=== PATIENT | male | born 1960 | race Caucasian/White ===

== ENCOUNTER 2022-02-27 10:34 | Emergency (ER) | payer OTHER, SELFPAY ==
--- NOTE | ~2022-02-27 | XR_ITS ---
EXAMINATION: XR chest 2V DATE: 02/27/2022 11:07 INDICATION: Cough, and shortness of breath TECHNIQUE: Frontal view of the chest is obtained COMPARISON: None available FINDINGS: The lungs are free of acute opacities. No pleural effusion or pneumothorax. The cardiomedia stinal silhouette is normal. There is moderate thoracic spondylosis. IMPRESSION: 1. No acute cardiopulmonary abnormality. Reviewed, dictated and finalized at location B.
[2022-02-27 10:44] VITALS: BP 140/71; PULSE 84; RESP 16; TEMP 36.9; O2SAT 99
--- NOTE | 2022-02-27 10:50 | ED.URI ---
HPI - URI/Sore Throat General Chief Complaint: Upper Respiratory Infection Stated Complaint: congestion Time Seen by Provider: 02/27/22 10:58 Source: patient, RN notes reviewed and old records reviewed Mode of arrival: ambulatory Limitations: no limitations History of Present Illness HPI Narrative: 61-year-old male who presents to [facility] care with complaints of congestion, cough with some shortness of breath especially when laying down at night trying to sleep and states today some with exertion. Patient reports that he tested positive for COVID on February 18, patient has not been COVID vaccinated nor had flu shot. He reports that he has still some nasal congestion and cough denies any further fever, body aches or sore throat, did return to work yesterday. Patient has been taking Mucinex and Robitussin for his symptoms. MD elicited complaint: cough, rhinorrhea and nasal congestion Pertinent past history: other (COVID tested positive on 02/18) Onset (ago): day(s) Description of mucous: green Exacerbating factors: exertion and supine positioning Treatments prior to arrival: other (Mucinex and Robittussin) Related Data Allergies Allergy/AdvReac Type Severity Reaction Status Date / Time perindopril AdvReac Mild Cough Verified 01/16/22 15:17 Review of Systems Review of Systems: CONSTITUTIONAL: Denies fever, chills, or sweats. EYES: Denies visual changes, redness, or discharge. ENT: Positive for rhinorrhea, congestion,no sore throat, or otalgia. CARDIOVASCULAR: Denies chest pain, palpitations, or edema. RESPIRATORY: Positive intermittent productive cough with some dyspnea. GASTROINTESTINAL: Denies abdominal pain, nausea, vomiting, or diarrhea. GENITOURINARY: Denies dysuria or hematuria. SKIN: Denies rash or itching. MUSCULOSKELETAL: Denies back pain, joint pain, or myalgia. NEUROLOGIC: Denies headache, numbness, or weakness. PSYCHIATRIC: Denies anxiety or depression. All systems reviewed & are unremarkable except as noted in HPI and below PMFSH Past Medical History Medical History (Updated 02/27/22 @ 11:41 by Charlene Lai NP) Left foot pain Mixed hyperlipidemia Obesity Personal history of colonic polyps Primary generalized (osteo)arthritis Slow transit constipation Type 2 diabetes mellitus without complication, without long-term current use of insulin Surgical History Surgical History (Updated 02/27/22 @ 11:08 by Charlene Lai NP) History of bowel resection reports h/o multiple abd surgeries S/P right rotator cuff repair Status post hernia repair w/ resulting bowel perforation and sepsis Family History Family History Mother Heart disease Diabetes mellitus Other Family history of arthritis Social History Social History Smoking packs per day: 1 Smoking cigarettes per day: 20.0 Years smoked: 5 Smoking pack-years: 5.00 Smoking status: Former smoker Tobacco type: cigarettes Second hand tobacco smoke exposure: No Smoking end date: 07/08/89 Alcohol intake: current Alcohol use details: rare Substance use: never Substance use type: does not use Gender identity (if verbalized by the patient): Male Sexual Orientation (if Verbalized by the Patient): Straight or Heterosexual Comments At time of signature, agree with nursing past medical, surgical, social and family history. There is no relevant family history pertinent to the presenting complaint Exam Narrative: GENERAL: Well-appearing, well-nourished,obese and in no acute distress. HEAD: Normocephalic, atraumatic. EYES: PERRLA and EOMI. ENT: Nares red with some clear nasal rhinorrhea no epistaxis. Mucous membranes moist.TM's pearly white with good light reflex, throat with no lesions or exudates or tonsil swelling some post nasal drainage noted NECK: Supple. no lymphadenopathy CHEST: coarse breath sounds right base
== END 2022-02-27 11:51 | disposition home or self-care (01) ==
PROVIDERS: Emergency Provider Registered Nurse; PCP Family Medicine
DX: J06.9 Acute upper respiratory infection, unspecified (principal); R05.9 Cough, unspecified; Z87.891 Personal history of nicotine dependence; E78.2 Mixed hyperlipidemia; E11.9 Type 2 diabetes mellitus without complications; Z79.4 Long term (current) use of insulin; E66.9 Obesity, unspecified; Z68.42 Body mass index [BMI] 45.0-49.9, adult; M19.90 Unspecified osteoarthritis, unspecified site
CPT/HCPCS: 71046; 99213; G0463

== ENCOUNTER → 2023-08-29 08:26 | Outpatient (CLI) | payer OTHER, SELFPAY ==
--- NOTE | ~2023-08-29 | XR_ITS ---
Right Knee Technique: AP, lateral, and sunrise views were obtained. Clinical History: Pain Findings: No fracture or dislocation is seen. There is medial compartment narrowing. There is medial joint line osteophyte formation. There is mild degenerative change of the lateral and patellofemoral compartments.. Soft tissues are unremarkable. No joint effusion is seen. Impression: Moderate medial compartment degenerative change, and more mild degenerative change of the lateral and patellofemoral compartment. Reviewed, dictated and finalized at location M. 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
--- NOTE | ~2023-08-29 | XR_ITS ---
Left Knee Technique: AP, lateral, and sunrise views were obtained. Clinical History: Pain Findings: No fracture or dislocation is seen. Osseous alignment is anatomic. Mild tricompartmental de generative changes present. Soft tissues are unremarkable. No joint effusion is seen. Impression: Mild tricompartment degenerative change. Reviewed, dictated and finalized at [facility]. SUTURE WINDER Impression: Mild tricompartment degenerative change.
== END ==
PROVIDERS: PCP Physician Assistant; Visit Provider Physician Assistant
DX: M25.561 Pain in right knee (principal); M25.562 Pain in left knee
CPT/HCPCS: 73564

== ENCOUNTER 2024-09-22 13:13 | Emergency (ER) | payer OTHER, SELFPAY ==
--- NOTE | ~2024-09-22 | CT_ITS ---
CLINICAL INDICATION: Lower abdominal pain COMPARISON: None. TECHNIQUE: Multiple contiguous axial images of the abdomen and pelvis were performed following the ad ministration of with 100 mL Omnipaque-350 intravenous contrast The dose-length product (DLP) was 1602.08 mGy-cm. Automated exposure control and iterative reconstruction technique were employed. FINDINGS/OBSERVATIONS: Visualized lower thorax: The bilateral lung bases are clear. The heart is of normal size, without pericardial effusion. Small hiatal hernia is present. Liver: The liver demonstrates homogeneous enhancement and is enlarged measuring 19 cm in longitudinal dimens ion. Gallbladder and biliary system: The gallbladder is surgically absent. Pancreas: Fatty atrophy of the pancreas without ductal dilatation. Spleen: The spleen enhances homogeneously and is enlarged measuring 13 cm in longitudinal dimension. Kidneys: 8 mm nonobstructing calculus within the interpolar region of the left kidney. Rounded focus of decreased attenuation within the lower pole of the right kidney measuring 34 x 35 x 38 mm demonstr ating soft tissue attenuation for which focused ultrasound versus contrast-enhanced MRI (with renal m ass protocol) is recommended for further evaluation. Mild left-sided hydronephrosis likely secondary to chronic UPJ obstruction. The remainder of the bilateral kidneys otherwise enhance symmetrically without right-sided hydronephr osis or additional renal calculi detected bilaterally. Adrenal glands: Unremarkable. Gastrointestinal tract: Multiple fascial defects along the anterior abdominal wall. Within the mid transverse colon, just distal to a stapled anastomosis, to the right of midline is a ( likely) Conroy's hernia (axial series, images 124 through 133 and sagittal series, images 49 through 63). Small bowel containing anterior abdominal wall hernia is also noted, to the right of midline, likely chronic and nonobstructing. Appendix: Likely surgically absent. Vasculature: Calcified atherosclerotic disease within the lower abdominal aorta and bilateral iliac vasculature. Lymph nodes: No pathologically enlarged or morphologically suspicious lymph nodes within the retroperitoneum or at the root of the mesentery. Pelvic structures: The bladder is decompressed, and otherwise unremarkable. The prostate gland is not enlarged. Body wall and musculoskeletal: Degenerative disease within the lower thoracic and lumbosacral spine, most prominent at the level of L5/S1 with osteophyte formation, disc space narrowing, endplate changes and vacuum phenomena. There are bridging endplate osteophytes at multiple levels in the spine, consistent with diffuse idio pathic skeletal hyperostosis (DISH). IMPRESSION: 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 Hepatosplenomegaly Findings within the right kidney for which a focused ultrasound versus contrast-enhanced MRI (with re nal mass protocol) is recommended for further characterization once patient is over this acute event. Reviewed, dictated and finalized at location A. IMPRESSION: Findings consistent with a Conroy's hernia of the transverse colon, as detaile d above. Hepatosplenomegaly Findings within the right kidney for which a focused ultrasound versus contrast -enhanced MRI (with renal mass protocol) is recommended for further characteriz ation once patient is over this acute event.
[2024-09-22 13:36] VITALS: BP 143/64; PULSE 73; RESP 16; TEMP 36.5; O2SAT 100
--- NOTE | 2024-09-22 14:24 | ED_ITS ---
HPI - Abdominal Pain General Chief Complaint: Abdominal Pain <Aung Worley PA-C - Last Filed: 09/22/24 14:33> Stated Complaint: Hernia/abdominal pain, nausea <Aung Worley PA-C - Last Filed: 09/22/24 14:33> Time Seen by Provider: 09/22/24 15:34 <Aung Worley PA-C - Last Filed: 09/22/24 14:33> Focused HPI: This is a 63-year-old male who presents to the ED for chief complaint of diffuse abdominal pain ongoing for the past 2-3 days. Patient reports multiple hernias and multiple hernia surgeries in the past. He feels this pain is likely related to a hernia. Reports 2 episodes of vomiting 2 days ago. Denies overlying skin changes, fevers, change in bowel movement. GENERAL: Well-appearing, well-nourished, and in no acute distress. HEAD: Normocephalic, atraumatic. CHEST: Clear to auscultation. No respiratory distress. HEART: Regular rate and rhythm. ABD: Abdomen is soft. There are several areas of bulging across the upper abdomen. Significant scarring noted from previous abdominal surgical history NEURO: Alert and oriented x3. Patient screened in triage and initial orders placed. Additional care and disposition to be based upon diagnostic testing and treatment. <Aung Worley PA-C - Last Filed: 09/22/24 14:33> Source: patient <Aung Worley PA-C - Last Filed: 09/22/24 14:33> Mode of arrival: ambulatory <Aung Worley PA-C - Last Filed: 09/22/24 14:33> Limitations: no limitations <Aung Worley PA-C - Last Filed: 09/22/24 14:33> History of Present Illness HPI narrative: I agree with the above HPI <Edouard Jaramillo MD - Last Filed: 09/22/24 21:57> Related Data Allergies/Adverse Reactions: Allergies Allergy/AdvReac Type Severity Reaction Status Date / Time No Known Allergies Allergy Verified 09/22/24 15:26 <Aung Worley PA-C - Last Filed: 09/22/24 14:33> Review of Systems 2 Review of Systems: All systems reviewed & are unremarkable except as noted in HPI and below <Edouard Jaramillo MD - Last Filed: 09/22/24 21:57> [facility] Past Medical History Medical History: Medical History Left foot pain Mixed hyperlipidemia Obesity Personal history of colonic polyps Primary generalized (osteo)arthritis SBO (small bowel obstruction) Slow transit constipation Type 2 diabetes mellitus without complication, without long-term current use of insulin <Aung Worley PA-C - Last Filed: 09/22/24 14:33> Surgical History Surgical History: Surgical History History of bowel resection reports h/o multiple abd surgeries S/P right rotator cuff repair Status post hernia repair w/ resulting bowel perforation and sepsis <Aung Worley PA-C - Last Filed: 09/22/24 14:33> Family History Family History: Family History Mother Heart disease Diabetes mellitus Other Family history of arthritis <Aung Worley PA-C - Last Filed: 09/22/24 14:33> Social History Social History: Social History Smoking packs per day: 1 Smoking cigarettes per day: 20.0 Years smoked: 5 Smoking pack-years: 5.00 Smoking status: Former smoker Tobacco type: cigarettes Second hand tobacco smoke exposure: No Smoking end date: 07/08/89 Alcohol intake: current Alcohol use details: rare Substance use: never Substance use type: does not use Living arrangements: with family Occupation/Education: occupation Gender identity (if verbalized by the patient): Male Sexual Orientation (if Verbalized by the Patient): Straight or Heterosexual <Aung Worley PA-C - Last Filed: 09/22/24 14:33> Exam 2 Narrative: APPEARANCE: Well appearing, no pain, no distress, well-nourished. HEAD: normocephalic, atraumatic. EYES: PERRLA/EOMI, conjunctivae clear. NOSE: Normal no drainage EARS:TMS clear with good light reflex. THROAT: Pharynx clear, no exudate. NECK: Supple. No adenopathy, no masses. RESPIRATORY: Airway patent, respirations nonlabored. Clear to auscultation bilaterally, no rales, rhonchi, wheezing. CARDIOVASCULAR: Regular rate and rhythm without murmurs rubs or gallops. ABDOMINAL: Multiple scars across the abdomen with large abdominal wall defects. No areas of incarcerated bowel palpate. No tenderness to palpation, active bowel sounds MUSCULOSKELETAL: Moves all extremities. Strength/ROM intact, No edema, No calf tenderness. NEURO: Alert. Cranial nerves II through XII intact. Good gait. Good coordination SKIN: Warm, dry. Normal Color <Edouard Jaramillo MD - Last Filed: 09/22/24 21:57> Course Vital Signs Vital signs: Vital Signs Temperature 97.7 F 09/22/24 13:36 Pulse Rate 73 09/22/24 13:36 Respiratory Rate 16 09/22/24 13:36 Blood Pressure 143/64 H 09/22/24 13:36 Pulse Oximetry 100 09/22/24 13:36 Temperature 97.7 F 09/22/24 13:36 Pulse Rate 74 09/22/24 16:46 Respiratory Rate 15 09/22/24 16:46 Blood Pressure 151/82 H 09/22/24 16:46 Pulse Oximetry 100 09/22/24 16:46 <Aung Worley PA-C - Last Filed: 09/22/24 14:33> Vital Signs Temperature 97.7 F 09/22/24 13:36 Pulse Rate 73 09/22/24 13:36 Respiratory Rate 16 09/22/24 13:36 Blood Pressure 143/64 H 09/22/24 13:36 Pulse Oximetry 100 09/22/24 13:36 Temperature 97.7 F 09/22/24 13:36 Pulse Rate 74 09/22/24 16:46 Respiratory Rate 15 09/22/24 16:46 Blood Pressure 151/82 H 09/22/24 16:46 Pulse Oximetry 100 09/22/24 16:46 <Edouard Jaramillo MD - Last Filed: 09/22/24 21:57> MDM - Abdominal Pain MDM Narrative Medical decision making narrative: 63-year-old male presents emergency department for evaluation for evaluation of intermittent abdominal pain. Patient did feel he was having increased abdominal pressure that has since improved. Patient is currently afebrile with no leukocytosis hemoglobin of 14.4. No acute abnormalities on the patient's CMP and a lactic acid of 1.4 UA was negative for infection. Patient does have multiple hernias on the CT scan with no evidence of obstruction. Patient states he is passing gas passing flatness. Patient was advised to switch to a clear liquid diet was provided medications for pain control. Patient states he does have follow-up with primary care physician and was encouraged to follow up with his surgeons at [place]. All questions concerns were addressed patient family are comfortable the plan for discharge and close follow-up. <Edouard Jaramillo MD - Last Filed: 09/22/24 21:57> Differential Diagnosis Differential diagnosis: Likely abdominal pain, acute appendicitis, constipation, diverticulitis, gastroenteritis, pancreatitis and small bowel obstruction <Edouard Jaramillo MD - Last Filed: 09/22/24 21:57> Lab Data Attestation: I reviewed the patient's lab results. <Edouard Jaramillo MD - Last Filed: 09/22/24 21:57> Result diagrams: 09/22/24 14:34 09/22/24 14:34 <Aung Worley PA-C - Last Filed: 09/22/24 14:33> Labs: Lab Results 09/22/24 09/22/24 Range/Units 14:34 14:49 WBC 7.3 (4.5-10.0) K/mm3 RBC 4.87 (4.6-6.20) M/mm3 Hgb 14.4 (14.0-18.0) g/dL Hct 44.2 (42.0-52.0) % MCV 90.8 (80-100) fl MCH 29.6 (26-34) pg MCHC 32.6 (32-36) g/dl RDW 14.3 (11.5-14.5) % Plt Count 158 (150-375) k/mm3 MPV 10.4 (7.4-10.4) fl Immature Gran % (Auto) 0.1 (0-0.5) % Neut % (Auto) 70.5 (45.5-73.1) % Lymph % (Auto) 19.1 (18.3-44.2) % [place] % (Auto) 7.4 (2.6-8.5) % Eos % (Auto) 2.6 (0-4.4) % Baso % (Auto) 0.3 (0.2-1.2) % Lymph # (Auto) 1.40 (0.9-3.2) K/mm3 [place] # (Auto) 0.5 (0.1-0.6) K/mm3 Eos # (Auto) 0.2 (0-0.3) K/mm3 Baso # (Auto) 0.0 (0.0-0.1) K/mm3 Abs Immat Gran (auto) 0.01 (0.00-0.031) K/mm3 Absolute Neuts (auto) 5.2 (1.3-6.7) K/mm3 Absolute Nucleated RBC 0.000 (0.0-0.012) K/mm3 Nucleated RBC % 0.0 (0.0-0.2) % Sodium 139 (137-145) mmol/L Potassium 4.3 (3.4-5.0) mmol/L Chloride 105 (98-107) mmol/L Carbon Dioxide 26 (22-30) mmol/L Anion Gap 8 (4-12) mmol/L BUN 17 (9-20) mg/dL Creatinine 0.86 (0.7-1.3) mg/dL Estim Creat Clear Calc Not Reportable Estimated GFR > 60 (59 - ) Glucose 197 H (65-110) mg/dL Lactic Acid 1.4 (0.7-2.0) mmol/L Calcium 8.8 (8.4-10.2) mg/dL Total Bilirubin 0.7 (0.2-1.3) mg/dL AST 18 (17-59) U/L ALT 18 (6-50) U/L Alkaline Phosphatase 69 (38-126) U/L Total Protein 6.0 L (6.3-8.2) g/dL Albumin 3.7 (3.5-5.1) g/dL Lipase 44 (23-300) U/L Urine Color Yellow (Yellow) Urine Appearance Clear (Clear) Urine pH 5.5 (5.0-9.0) Ur Specific [place] 1.024 (1.001-1.035) Urine Protein Negative (Negative) mg/dL Urine Glucose (UA) 3+ H (Negative) mg/dL Urine Ketones Negative (Negative) mg/dL Ur Blood (Man) Negative (Negative) Urine Nitrate Negative (Negative) Urine Bilirubin Negative (Negative) Urine Urobilinogen 1.0 (<2.0) mg/dL Leukocyte Esterase Rfl Negative (Negative) KATIE/UL <Aung Worley PA-C - Last Filed: 09/22/24 14:33> Lab Results 09/22/24 09/22/24 Range/Units 14:34 14:49 WBC 7.3 (4.5-10.0) K/mm3 RBC 4.87 (4.6-6.20) M/mm3 Hgb 14.4 (14.0-18.0) g/dL Hct 44.2 (42.0-52.0) % MCV 90.8 (80-100) fl MCH 29.6 (26-34) pg MCHC 32.6 (32-36) g/dl RDW 14.3 (11.5-14.5) % Plt Count 158 (150-375) k/mm3 MPV 10.4 (7.4-10.4) fl Immature Gran % (Auto) 0.1 (0-0.5) % Neut % (Auto) 70.5 (45.5-73.1) % Lymph % (Auto) 19.1 (18.3-44.2) % [place] % (Auto) 7.4 (2.6-8.5) % Eos % (Auto) 2.6 (0-4.4) % Baso % (Auto) 0.3 (0.2-1.2) % Lymph # (Auto) 1.40 (0.9-3.2) K/mm3 [place] # (Auto) 0.5 (0.1-0.6) K/mm3 Eos # (Auto) 0.2 (0-0.3) K/mm3 Baso # (Auto) 0.0 (0.0-0.1) K/mm3 Abs Immat Gran (auto) 0.01 (0.00-0.031) K/mm3 Absolute Neuts (auto) 5.2 (1.3-6.7) K/mm3 Absolute Nucleated RBC 0.000 (0.0-0.012) K/mm3 Nucleated RBC % 0.0 (0.0-0.2) % Sodium 139 (137-145) mmol/L Potassium 4.3 (3.4-5.0) mmol/L Chloride 105 (98-107) mmol/L Carbon Dioxide 26 (22-30) mmol/L Anion Gap 8 (4-12) mmol/L BUN 17 (9-20) mg/dL Creatinine 0.86 (0.7-1.3) mg/dL Estim Creat Clear Calc Not Reportable Estimated GFR > 60 (59 - ) Glucose 197 H (65-110) mg/dL Lactic Acid 1.4 (0.7-2.0) mmol/L Calcium 8.8 (8.4-10.2) mg/dL Total Bilirubin 0.7 (0.2-1.3) mg/dL AST 18 (17-59) U/L ALT 18 (6-50) U/L Alkaline Phosphatase 69 (38-126) U/L Total Protein 6.0 L (6.3-8.2) g/dL Albumin 3.7 (3.5-5.1) g/dL Lipase 44 (23-300) U/L Urine Color Yellow (Yellow) Urine Appearance Clear (Clear) Urine pH 5.5 (5.0-9.0) Ur Specific [place] 1.024 (1.001-1.035) Urine Protein Negative (Negative) mg/dL Urine Glucose (UA) 3+ H (Negative) mg/dL Urine Ketones Negative (Negative) mg/dL Ur Blood (Man) Negative (Negative) Urine Nitrate Negative (Negative) Urine Bilirubin Negative (Negative) Urine Urobilinogen 1.0 (<2.0) mg/dL Leukocyte Esterase Rfl Negative (Negative) KATIE/UL <Edouard Jaramillo MD - Last Filed: 09/22/24 21:57> Imaging Data Radiologist's impression: ITS Impressions Abdomen/Pelvis CT 09/22/24 15:15 IMPRESSION: 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 Hepatosplenomegaly Findings within the right kidney for which a focused ultrasound versus contrast- enhanced MRI (with renal mass protocol) is recommended for further characterization once patient is over this acute event. 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 Hepatosplenomegaly Findings within the right kidney for which a focused ultrasound versus contrast- enhanced MRI (with renal mass protocol) is recommended for further characterization once patient is over this acute event. <Edouard Jaramillo MD - Last Filed: 09/22/24 21:57> Discharge Plan Discharge Clinical Impression: Abdominal hernia <Aung Worley PA-C - Last Filed: 09/22/24 14:33> Patient Disposition: Home, Self-Care <Aung Worley PA-C - Last Filed: 09/22/24 14:33> Condition: Stable <Aung Worley PA-C - Last Filed: 09/22/24 14:33> Instructions: Antibiotic Form, Abdominal Pain (ED) <Aung Worley PA-C - Last Filed: 09/22/24 14:33> Additional Instructions: Switched to a clear liquid diet for the next 1-3 days. Stool softener to help prevent any constipation. Medications as directed for pain control. Have close follow-up with your primary care physician. I do recommend close follow- up with your surgeons at [place] for further evaluation. If you have any worsening symptoms then please call or return to the emergency department. <Aung Worley PA-C - Last Filed: 09/22/24 14:33> Patient Language: Armenian <Aung Worley PA-C - Last Filed: 09/22/24 14:33> Prescriptions: New hydrocodone-acetaminophen 5-325 mg tablet 1 tablet PO Q12H PRN (Reason: pain) Qty: 14 0RF No Action metformin 500 mg tablet extended release 24 hr 1,500 mg PO DAILY Qty: 270 3RF cholecalciferol (vitamin D3) 125 mcg (5,000 unit) capsule See Rx Instructions .ROUTE .COMPLEX Qty: 90 2RF Dose Instruction: TAKE 1 CAPSULE DAILY Rx Instructions: TAKE 1 CAPSULE DAILY rosuvastatin 20 mg tablet See Rx Instructions .ROUTE .COMPLEX Qty: 90 2RF Dose Instruction: TAKE 1 TABLET DAILY Rx Instructions: TAKE 1 TABLET DAILY valsartan 80 mg tablet 120 mg PO DAILY Qty: 135 1RF ibuprofen 800 mg tablet 800 mg PO BID PRN (Reason: pain) Qty: 180 2RF <Aung Worley PA-C - Last Filed: 09/22/24 14:33> Follow-up/Referrals: Rodney Nova MD [Primary Care Provider] - <Aung Worley PA-C - Last Filed: 09/22/24 14:33>
[2024-09-22 14:42] LABS: Basophils Percent Auto 0.3 % (0.2-1.2); Eosinophils Absolute Auto 0.2 K/mm3 (0-0.3); Eosinophils Percent Auto 2.6 % (0-4.4); Hematocrit 44.2 % (42.0-52.0); Hemoglobin 14.4 g/dL (14.0-18.0); Immature Granulocyte Absolute 0.01 K/mm3 (0.00-0.031); Immature Granulocyte Percent A 0.1 % (0-0.5); Lymphocytes Percent Auto 19.1 % (18.3-44.2); Mean Corpuscular HGB Conc 32.6 g/dl (32-36); Mean Corpuscular Hemoglobin 29.6 pg (26-34); Mean Corpuscular Volume 90.8 fl (80-100); Mean Platelet Volume 10.4 fl (7.4-10.4); Monocytes Absolute Auto 0.5 K/mm3 (0.1-0.6); Monocytes Percent Auto 7.4 % (2.6-8.5); Neutrophils Absolute Auto 5.2 K/mm3 (1.3-6.7); Neutrophils Percent Auto 70.5 % (45.5-73.1); Platelet Count Result 158 k/mm3 (150-375); Red Blood Count 4.87 M/mm3 (4.6-6.20); Red Cell Distribution Width 14.3 % (11.5-14.5); White Blood Count 7.3 K/mm3 (4.5-10.0)
--- OUTSIDE RECORDS SUMMARY | 2024-09-22 14:42 | XMS_ITS | Clinical Summary ---
Author Organization [facility] Address [address] [place] [address] Care Team Providers Care Counselor Aide Name Role Phone Rodney Nova MD Primary Care Provider Allergies No known active allergies Social History Tobacco Use Types Packs/Day Years Used Date Smoking Tobacco: Never Assessed Personal Safety Answer Date Recorded Getting School Help Needed Not on file 09/21 Sex and Gender Information Value Date Recorded Sex Assigned at Not on file Legal Sex Male 4:03 AM [employer]ERR[employer]PER[employer] Gender Identity Male 01/21/2023 7:32 PM CDT Sexual Orientation Straight 01/21/2023 7: 32 PM CDT Plan of Treatment Not on file Insurance [facility] A[employer] SIGNATURE CCMSI Care Teams Counselor Aide Relationship Specialty Start Date End Date Rodney Nova MD [address] [facility] [address] [place] [address] PCP - General Family Medicine 10/26/21
--- OUTSIDE RECORDS SUMMARY | 2024-09-22 14:42 | XMS_ITS | Clinical Summary ---
Author Organization [facility] Address [address] [place] [address] Care Team Providers Care Energy Conservation Engineer Name Role Phone Rodney Nova MD Primary Care Provider [phone] Source Comments [facility],non-owned Affiliates and Associated Physician Practices is amultiple site organization consisting of ambulatory clinics and hospital sitesin [place], [place] and [place]. This disclosure is being madepursuant to the Care Everywhere program and may not contain all information available regarding this patient. Last updated [facility] Allergies No known active allergies Medications * Be aware that medications may not be up to date on this document. Alwaysverify current medications with the patient. Medication Sig Dispensed Refills Start Date End Date Status metFORMIN CR 24hr modified (Glumetza) 1000 MG (MOD) tablet Take 1 (one) tablet by mouth daily with dinner Active valsartan (Diovan) 80 MG tablet Take 1.5 (one and one-half) tablets by mouth once daily Active Cholecalciferol (Vitamin D) 125 MCG (5000 UT) CAPS Take 1 (one) capsule by mouth once daily Active rosuvastatin (Crestor) 10 MG tablet Take 2 (two) Half Tablet by mouth once daily Active Active Problems Problem Noted Date Diagnosed Date Generalized abdominal pain 01/20/2023 Family History Medical History Relation Name Comments Diabetes - Type 2 Father Diabetes - Type 2 Mother Relation Name Status Comments Father Alive Mother Social History Tobacco Use Types Packs/Day Years Used Date Smoking Tobacco: Never Smokeless Tobacco: Never Tobacco Cessation:Counseling Given: Not Answered Alcohol Use Standard Drinks/Week Comments Not Currently 0 (1 standard drink = 0.6 oz pur e alcohol) AUDIT-C Answer Date Recorded Q1: How often do you have a drink containing alc ohol? Never 01/20/2023 Q2: How many drinks containi ng alcohol do you have on a typical day when you are drinking? 1 or 2 01/20/2023 Q3: How often do you have six or more drinks on one occasion? Never 01/20/2023 Overall Financial Resource Strain (CARDIA) Answe r Date Recorded How hard is it for you to pa y for the very basics like food, housing, medical care, and heating? Not hard at all 01/20/2023 [facility] - Occupational Stress Questionnaire Answer Date Recorded Do you feel stress - tense, restless, nervous, or anxious, or unable to sleep at night because your mind is troubled all the time - these days? Not at all 01/20/2023 Hunger Vital Sign Answer Date Recorded Within the past 12 months, y ou worried that your food would run out before you got the money to buy more. Never true 01/21/20 23 Within the past 12 months, t he food you bought just didn't last and you didn't have money to get more. Never true 01/20/2023 PRAPARE - Transportation Answer Date Re corded In the past 12 months, has l ack of transportation kept you from medical appointments or from getting medications? No 01/05 In the past 12 months, has l ack of transportation kept you from meetings, work, or from getting things needed for daily living? No 01/20/2023 Housing Stability Vital Sign Answer Juan e Recorded In the last 12 months, was t here a time when you were not able to pay the mortgage or rent on time? No 01/20/2023 In the last 12 months, how many places have you lived? 1 01/20/2023 In the last 12 months, was t here a time when you did not have a steady place to sleep or slept in a longterm (including now)? No 01/20/2023 Sex and Gender Information Value Date Recorded Sex Assigned at Not on file Gender Identity Not on file Sexual Orientation Not on file Last Filed Vital Signs Vital Sign Reading Time Taken Comments Blood Pressure 154/83 01/21/2023 11:52 AM CDT Pulse 61 01/21/2023 11:52 AM CDT Temperature 36.6 C (97.9 F) 01/21/2023 11:52 AM CDT Respiratory Rate 18 01/21/2023 11:52 AM CDT Oxygen Saturation 99% 01/21/2023 11:52 AM CDT Inhaled Oxygen Concentration - - Weight 154.2 kg (340 lb) 01/19/2023 12:57 PM CDT Height 185.4 cm (6' 1 ) 01/19/2023 12:57 PM CDT Body Mass Index 44.86 01/19/2023 12:57 PM CDT Plan of Treatment Health Maintenance Due Date Last Done Comments COLOGUARD (AGES 45-75) - COL ON CA SCREENING 1960 COLON MONITORING 1960 COLONOSCOPY - COLON CA SCREENING 1960 CT COLONOGRAPHY - COLON CA SCREENING 1960 Colorectal Cancer Screening 1960 FIT - COLON CA SCREENING 1960 FLEX SIG - COLON CA SCREENING 1960 DTAP/TDAP/TD VACCINES (1 - Tdap) 12/22/1979 PNEUMOCOCCAL VACCINE 50+ (1 of 1 - PCV) 2010 ZOSTER VACCINE (1 of 2) 2010 Respiratory Syncytial Virus (RSV) Vaccine Pt: or over 60 yrs (1 - Risk 60-74 years 1-dose series) 2020 COVID-19 VACCINE ( - 2023-2 5 season) 2024 INFLUENZA VACCINE (#1) 2024 DEPRESSION SCREENING 07/08/2024 HEPATITIS C SCREENING Completed 01/19/2023 HIV SCREENING Completed 01/19/2023 HEPATITIS B VACCINE Aged Out No longe r eligible based on patient's age to complete this topic HIB VACCINE Aged Out No longer eligi ble based on patient's age to complete this topic HPV VACCINE Aged Out No longer eligi ble based on patient's age to complete this topic MENINGOCOCCAL (Group B) VACC INE SHARED DECISION-MAKING Aged Out No longer eligibl e based on patient's age to complete this topic MENINGOCOCCAL GROUPS A/C/Y/W VACCINE Aged Out No longer eligible b ased on patient's age to complete this topic PNEUMOCOCCAL VACCINE Aged Out No long er eligible based on patient's age to complete this topic Procedures Procedure Name Priority Date/Time Associated Diagnosis Comments HEPATITIS C AB SCREEN RFLX NAAT QUANT STAT 01/19/2023 1:26 PM CDT HIV-1 HIV-2 ANTIBODY + HIV P24 AG PANEL STAT 01/19/2023 1:26 PM CDT from Last 3 Months or Most Recently Relevant to Health Maintenance Results * HEPATITIS C AB SCREEN RFLX NAAT QUANT (01/19/2023 1:26 PM CDT) Hepatitis C Antibody Non-react faisal Non-reac tive 01/19/2023 2:33 PM CDT [facility] Comment:Hepatitis C Antibody screen indicates no serologic evidence of past or current infection with Hepatitis C Virus. Patients with unexplained liver disease who are immunocompromised or suspected of having acute Hepatitis C infection may benefit from Nucleic Acid Test (TAMERA) for Hepatitis C Viral RNA to confirm Hepatitis C status. Blood BLOOD SPECIMEN / Unknown Venipuncture / Unknown 01/19/2023 1:26 PM CDT 01/19/2023 1:47 PM CDT Stanford Soria MD LAB - CHEMISTRY [facility]IGUEL CORTE[facility] Performing Organization Address City/[facility]/ZIP Co de Phone Number [address] [address], [employer] [phone] * HIV-1 HIV-2 ANTIBODY + HIV P24 AG PANEL (01/19/2023 1:26 PM CDT) HIV Antigen/Antibod y 1 & 2 Non-reacti ve Non-react faisal 01/19/2023 2:33 PM CDT [facility] Comment:No Laboratory eviden ce of HIV infection. Blood BLOOD SPECIMEN / Unknown Venipuncture / Unknown 01/19/2023 1:26 PM CDT 01/19/2023 1:47 PM CDT Stanford Soria MD LAB - CHEMISTRY MIGUEL CORTEZ [address] [address], [facility] [phone] from Last 3 Months or Most Recently Relevant to Health Maintenance Advance Directives * Full Code (Latest Code Status on File) Date Activated Date Inactivated Comments 01/20/2023 11:56 AM 01/21/2023 4:04 PM Care Teams Energy Conservation Engineer Relationship Specialty Start Date End Date Rodney Nova MD [address] [place] [address] PCP - General Family Medicine 06/08/21
--- OUTSIDE RECORDS SUMMARY | 2024-09-22 14:42 | XMS_ITS | Data Portability ---
Author Organization [facility] Local Labs [facility], [facility] OFFICE Address [address] [address] Care Team Providers Care Signal Operator Name Role Phone SAMIRA CAT Reference Test Clerk [phone] Assessment No assessment recorded. Plan of Treatment Reminders Order Date Submit Date Provider Last Modified By Organization Details Last Modified Time Details Appointments None recorded. Lab None recorded. Referral physical therapist referral 2021 022 [email or web address] Not available 13:08:30 physical therapist referral 2021 022 [email or web address] Not available 16:57:03 Procedures None recorded. Surgeries None recorded. Imaging None recorded. Medication Orders None recorded. Patient TargetsNo targets recorded. Patient InstructionsNo instructions recorded. Reason for Referral Physical Therapist Referral for Concussion with loss of consciousness Referring Physician: Joaquin Alfaro, [facility] Encounter Date: 07/18/2021 Physical Therapist Referral for Concussion with loss of consciousness Referring Physician: Joaquin Alfaro, [facility] Encounter Date: 04/26/2022 Problems No Known Problems Medical Equipment None Reported. Allergies No known drug allergies Medications Name Sig Start Date Stop Date Status Note LastModified by Organization Details LastModified Time azithromycin 250 mg tablet TAKE 2 TABLETS BY MOUTH TODAY, THEN TAKE 1 TABLET DAILY FOR 4 DAYS active Not Available Not Available No t Available ibuprofen 800 mg tablet active Not Available Not Available No t Available perindopril erbumine 4 mg tablet active Not Available Not Available Not Available valsartan 80 mg tablet active Not Available Not Available No t Available oxycodone-lux taminophen 5 mg-325 mg tablet TAKE 1 TABLET BY MOUTH EVERY 6 HOURS NEEDED FOR PAIN active Not Available Not Available No t Available tamsulosin 0.4 mg capsule TAKE 1 CAPSULE BY MOUTH EVERY DAY active Not Available Not Available No t Available meclizine 25 mg tablet active Not Available Not Available No t Available albuterol sulfate HFA 90 mcg/actuation aerosol inhaler USE 2 PUFF INHALED FOUR TIMES DAILY NEEDED FOR SHORTNESS OF BREATH, WHEEZING, SHORTNESS OF BREATH active Not Available Not Available No t Available cholecalcifer ol (vitamin D3) 125 mcg (5,000 unit) capsule active Not Available Not Available Not Available rosuvastatin 20 mg tablet active Not Available Not Available Not Available metformin ER 1,000 mg tablet,extend ed release 24hr (osmotic) active Not Available Not Available No t Available Flowflex COVID-19 Antigen Home Test kit active Not Available Not Available Not Available Vitals Date Recorded Heart rate Systolic blood pressure Diastolic blood pressure Provider Name and Address Organization Details Last Updated DateTime 07/18/2021 85 /min 140 mm[Hg] 90 mm[Hg] Debbie Zambrano [employer] 07/18/2021 11:48:02 Date Recorded Heart rate Systolic blood pressure Diastolic blood pressure Provider Name and Address Organization Details Last Updated DateTime 08/18/2021 67 /min 132 mm[Hg] 78 mm[Hg] Suri Marquez [employer] 08/18/2021 12:43:28 Date Recorded Heart rate Systolic blood pressure Diastolic blood pressure Provider Name and Address Organization Details Last Updated DateTime 10/16/2021 78 /min 156 mm[Hg] 94 mm[Hg] Suri Plickers [employer] 10/16/2021 14:47:01 Date Recorded Heart rate Body height Body mass index (BMI) Body weight Systolic blood pressure Diastolic blood pressure Provider Name and Address Organization Details Last Updated DateTime 2 73 /min 185.42 cm 45.3 kg/m2 966579. 18 g 180 mm[Hg] 89 mm[Hg] Shannan Piedra [employer] [facility], [facility] 2 14:28:42 Date Recorded Body height Body mass index (BMI) Body weight Heart rate Systolic blood pressure Diastolic blood pressure Provider Name and Address Organization Details Last Updated DateTime 2 185.42 cm 45.3 kg/m2 837057. 18 g 78 /min 142 mm[Hg] 88 mm[Hg] Suri Marquez [facility] [employer] [facility], [facility] 2 10:15:34 Social History None recorded. Functional Status None recorded. Mental Status None recorded. Family History Nothing Reported. Medical History Condition Response Other Cancer N HIV or AIDS N Coronary Artery Disease N Gout N Kidney Stones N Hyperthyroidism N Breast Cancer N Hernia N Head Trauma/Injury Y Lung Cancer N Hypothyroidism N Lung Disease N Depression N Blood Clots N COPD N Pacemaker N Anxiety Disorder N Arthritis N Alcohol / Substance Abuse N Kidney Cancer N Cancer N Stroke N Melanoma N Neck Injury N Leg or Foot Ulcers N High Cholesterol N Skin Cancer N Liver Disease N Rheumatoid Arthritis N Headaches N Fibromyalgia N Concussion N Kidney Disease N Heart Problems N Chronic use of Pain Medication N Prostate Cancer N Migraines N Thyroid Problems N Alzheimers N Autoimmune Disorder N Anemia N Multiple Sclerosis N Tendon Tear N Ulcers N Heart Attack ([place]) N Diabetes Y Bleeding Disorder N Seizures/Epilepsy N Cardiac Stent N Tuberculosis N Urinary Tract Infection N Back Problems N Diverticulitis N Asthma N Lupus N Peripheral Vascular Disease N Sleep Disorder N GERD/Reflux N Hepatitis N Aneurysm N Thyroid Cancer N Heart Disease N Pulmonary Embolism N Hypertension N Osteoporosis N Past Encounters Encounter ID Performer Location Encounter Start Date Encounter Closed Date Diagnosis/Indication Diagnosis SNOMED-CT Code Diagnosis ICD10 Code Diagnosis Note [id number] Teodoro Alfaro DO [facility] [address] [facility] ,[address] [place] [address] 07/18/2021 11:21:14 07/19/2021 09:33:30 Concussion with loss of consciousness [id number] S06.0X9A I reviewed the records, evaluated the patient and within a reasonable degree of medical certainty I do believe the patient did sustain a concussion with a loss of consciousn ess at the time of his work-relat ed injury. The patient is experienci ng symptoms that would be consistent with this type of injury and is actually already making some improvemen t. We did discuss several different possible treatment avenues at this time and after discussion with the patient we will hold off on any medication adjustment s. We will have him continue physical therapy for his shoulder under the direction of orthopedic surgery but I will add physical therapy from the perspectiv e of a head injury I believe he will show good improvemen t with this rather rapidly. I do not have additional treatments that I feel are necessary for him at this time. I do believe he would be capable of sedentary work from the perspectiv e of the head injury and I did fill out a work status today stating such. I will see him back in 4 weeks time. [id number] Teodoro Alfaro, DO [facility] [address] [place] [address] 08/18/2021 11:40:20 08/18/2021 13:17:37 Concussion with loss of consciousness [id number] S06.0X9D Patient feels he has much improved overall. He feels confident and return to his regular work duties. He has no other new complaints at this time. Based on this I will release him to regular work duties and I did fill out a work status today. I will see him back in 8 weeks time and if he is doing well at that time he will be released at [facility]. [id number] Teodoro Alfaro, DO [facility] OFF[facility] [address] [place] [address] 10/16/2021 14:28:22 10/18/2021 14:06:16 Concussion with loss of consciousness [id number] S06.0X9D I discussed with the patient in forearm a head injury perspectiv e he is approachin g his baseline. I will not add additional treatment. He still has some mild tinnitus and with that some intermitte nt dizziness but it is very mild. No additional evaluation or treatment will be necessary. From my perspectiv e I filled out a work status today continuing him regular work duty and he will be placed at [facility]. He should continue to follow with orthopedic s until the completion of his care. [id number] Teodoro Alfaro, DO [facility] [address] [place] [address] 04/26/2022 13:53:37 05/01/2022 13:08:29 Concussion with loss of consciousness [id number] S06.0X9D I discussed with the patient and his significan t other that the benign positional vertigo type symptoms can return several months after a head injury such as his. It does not necessaril y mean that this will be a long-term issue. I believe all he will need it would be another short course of physical therapy up to 6 visits. I will go ahead and do that. He can continue regular work duties however in the interim. I did fill out a work status today stating such. [id number] Teodoro Alfaro, DO [facility] [address] [facility] [place] [address] 06/07/2022 09:30:23 06/07/2022 15:52:53 Concussion with loss of consciousness [id number] S06.0X9D I discussed with the patient and he has completed his physical Therapy course. I do not anticipate additional evaluation or treatment being necessary for him. He can continue regular work duties and he will be placed at [facility] t. Health Concerns Section Related Observation LastModified by Organization Detai ls LastModified Time None Recorded Concern Status LastModified by Organization Details LastModified Time None Recorded Advance Directives Directive None Recorded Payers Encounter Date Sequence Insurance Name Policy Number Policy Maya Covered Member ID Maya Member ID Guarantor Name 07/18/2021 [facility] Hemann 08/18/2021 [facility] 10/16/2021 [facility] Saman Hemann 04/26/2022 [facility] 06/07/2022 [facility] Saman Hemann Notes Date Note Type Note Provider Name and Address Organization Details Recorded Time 07/18/2021 text/html Patient is a 60-year-old male who is seen today for evaluation of his reported work-related injury. Patient states that he was working in his usual capacity on June 20, 2021 when he was hit by a fork truck and knocked to the ground hitting his head on the ground. Patient states he did have a loss of consciousness for a short duration of time and was dazed at that time. He does have some amnesia of the event surrounding the exact moments of the injury. He did have an evaluation at that time that did show no acute intracranial findings but did have a scalp hematoma that was rather significant. They did show me pictures of this as well I did review the records. The patient also sustained an injury at that time to his right shoulder and has been following with orthopedic surgery for this thus far and treatment thus far has been including mostly physical therapy. His symptoms at this point in time include dizziness and has actually had 1 fall when he states he turned too quick. He did not hit his head with the fall at home. He also states he has brain fog in which his short-term memory and concentration are affected and he does not feel like himself. He also has some tinnitus that he feels is in both of his ears as well as a palpable bump on his head still. He has noted some [place] [address], [place], [address], [employer] 07/21/2021 21:20:10 08/18/2021 text/html Patient is a 60-year-old male who is known to me having been followed for his work-related injury. Since last time I have seen him he feels he is doing much better with the physical therapy. His dizziness is nearly resolved. His balance is significantly improved. He denies any other new [place] [address], [place], [address], [employer] 08/19/2021 15:18:54 10/16/2021 text/html Patient is a 60-year-old male who is known to me having been followed for his work-related injury. Since last time I have seen him he has been working light duty. He is still pending orthopedics for his right shoulder at this time. He still has some mild tinnitus but for the most part feels he is approaching his baseline from the head injury itself. He denies any other new problems or concerns [place] [address], [place], [address], [employer] 10/18/2021 13:55:34 04/26/2022 text/html Patient is a 61-year-old male who is known to me having been followed for his work injury. I last released him on 10/16/2021 to [facility]. The patient was doing significantly better at that time. He did still has some very mild dizziness complaints but these have actually progressed a bit since he has been out of physical therapy. It is mostly associated with head movements as well as getting up and out of bed or rolling over. He states the room will start spinning and can last just moments to minutes. He has been able to continue working regular work duties. He has not had any other changes to his treatment regimen nor any [place] [address], [place], [address], [employer] 04/26/2022 19:05:56 06/07/2022 text/html Patient is a 61-year-old male who is known to me having been followed for his work-related injury. Since last time I have seen him he has completed his physical therapy at this time and he is only having occasional subjective dizziness at this time. He feels like he is doing much better overall. He [place] no [place] [address], [place], [address], [employer] 06/07/2022 11:17:15
--- OUTSIDE RECORDS SUMMARY | 2024-09-22 14:42 | XMS_ITS | Clinical Summary ---
Author Organization [facility] Address [address] [place] [address] Care Team Providers Care Unified Communications Engineer Name Role Phone Giancarlo Candelario Primary Care Provider [phone] Allergies No known active allergies Medications metFORMIN (GLUCOPHAGE) 1000 MG tablet Take 1.5 tablets (1,500 mg total) by mouth daily. 07/08/2020 Active rosuvastatin (CRESTOR) 10 MG tablet Take 2 tablets (20 mg total) by mouth daily. Active Cholecalciferol (VITAMIN D) 125 MCG (5000 UT) Cap Take 5,000 Units by mouth daily. Active ibuprofen (MOTRIN) 800 MG tablet Active Active Problems Problem Noted Date Diagnosed Date BMI 40.0-44.9, adult 11/19/2023 History of MRSA infection 11/19/2023 Primary osteoarthritis of knees, bilateral 11/17 Assessment & Plan (11/18/2023 12:23 PM CDT): Recommendation at this time: We discussed the risks, benefits, as well as the alternatives. At this point in time, we would like to avoid steroid shots. We discussed physical therapy, unloading, bracing, activity modification, weight loss, non-steroid anti-inflammatories, Tylenol, steroids, and visco-supplement injections. Failure of non-steroidal anti-inflammatories, tylenol, activity modification, and bracing.At this point in time, the patient would like to proceed with more definitive treatment. The pain is interfering with his activities and daily living. He's been dealing with this for 20 years. Due to his history of abdominal hernia that went on to MRSA, when we proceed with totaling the arthroplasty on the right, we'll use vancomycin. Consider antibiotic cementing versus just regular press fit. We will follow-up after surgery. History of abdominal hernia 11/18/2023 Pre-diabetes 11/18/2023 Family History Medical History Relation Comments Alcohol Abuse Maternal Grandfather Cancer Maternal Grandmother Arthritis Mother Asthma Mother Diabetes Mother Hypertension Mother Relation Status Comments Maternal Grandfather Maternal Grandmother Mother Social History Tobacco Use Types Packs/Day Years Used Date Smoking Tobacco: Former Cigarettes 1 5 Q uit: 11/06/1979 Smokeless Tobacco: Never Tobacco Cessation:Counseling Given: No Alcohol Use Standard Drinks/Week Comments Not Currently 0 (1 standard drink = 0.6 oz pure alcohol) Only have a drink once in a great while Sex and Gender Information Value Date Recorded Sex Assigned at Not on file Legal Sex Male 6:25 PM CDT Gender Identity Not on file Sexual Orientation Not on file Last Filed Vital Signs Vital Sign Reading Time Taken Comments Blood Pressure 140/69 11/18/2023 8:39 AM CDT Pulse 67 11/18/2023 8:39 AM CDT Temperature 36.1 C (97 F) 11/18/2023 8:39 AM CDT Respiratory Rate - - Oxygen Saturation 97% 11/18/2023 8:39 AM CDT Inhaled Oxygen Concentration - - Weight 150.6 kg (332 lb) 11/28/2023 9:52 AM CDT Height 185.4 cm (6' 1 ) 11/18/2023 8:39 AM CDT Body Mass Index 43.8 11/18/2023 8:39 AM CDT Plan of Treatment Health Maintenance Due Date Last Done Comments Colorectal Cancer Screening Colonoscopy (10 Years) 1960 Annual Physical 12/22/1963 PHQ-2 (Physician Bradley) 1972 Zoster Vaccines (1 of 2) 2010 RSV Immunization or 60+ Years (1 - Risk 60-74 years 1-dose series) 2020 COVID-19 Vaccine (2023-2 5 season) 2024 Influenza Adult (#1) 2024 PHQ-2 (Physician Bradley) 07/08/2024 DTaP, Tdap and Td Vaccines ( 2 - Td or Tdap) 05/30/2032 05/30/2022 Colorectal Cancer Screening FIT/FOBT (1 Year) Discontinued 09/18/2020, 09/17/2020, 09/16/2020 Hepatitis C Completed 01/19/2023 Meningococcal B Vaccine Aged Out No l onger eligible based on patient's age to complete this topic Meningococcal Vaccine Aged Out No sidney candida eligible based on patient's age to complete this topic Pneumococcal Vaccine: Pediatrics (0 to 5 Years) and At-Risk Patients (6 to 64 Years) Aged Out No longer eligible based on patient's age to complete this topic RSV Immunizations Under 20 Months Aged Out No longer eligible based on patient's age to complete this topic Procedures Procedure Name Priority Date/Time Associated Diagnosis Comments OCCULT BLOOD, FECES Routine 09/18/2020 1 0:38 AM CDT Mixed hyperlipidemia Diabetes mellitus from Last 3 Months or Most Recently Relevant to Health Maintenance Results * OCCULT BLOOD, FECES (09/18/2020 10:38 AM CDT) OCCULT BLOOD FECAL NEGATIVE NEGATIVE 09/20/2020 10:54 AM CDT [facility] STOOL SPECIMEN / Unknown 09/18/2020 10:38 AM CDT us Sandor Perez MD BODY FLUIDS AND STOOLS ORDER JASVIR Final Result [facility] [address] [place] [address], [place] [phone] from Last 3 Months or Most Recently Relevant to Health Maintenance Insurance [employer] Care Teams Unified Communications Engineer Relationship Specialty Start Date End Date Giancarlo Candelario PA [address] [facility] [address] [place] [id number] PCP - General PHYSICIAN TOOL FILER HAND 11/19/23
--- OUTSIDE RECORDS SUMMARY | 2024-09-22 14:42 | XMS_ITS | Referral Summary ---
Author Organization [facility] Address [address] [place] [address] Care Team Providers Care All Around Gear Machine Operator Name Role Phone Rodney Nova MD Primary Care Provider Allergies No known active allergies Social History Tobacco Use Types Packs/Day Years Used Date Smoking Tobacco: Never Assessed Personal Safety Answer Date Recorded Getting School Help Needed Not on file 09/21 Sex and Gender Information Value Date Recorded Sex Assigned at Not on file Legal Sex Male 4:03 AM LAMP INSPECTOR Gender Identity Male 01/21/2023 7:32 PM CDT Sexual Orientation Straight 01/21/2023 7: 32 PM CDT Plan of Treatment Not on file Insurance * Guarantor: Saman Soares Account Type Relation to Patient Date of Phone Billing Address Personal/Family Self 1960 [facility] [place] [address] [facility] [employer] SIGNATURE CCMSI Care Teams All Around Gear Machine Operator Relationship Specialty Start Date End Date Rodney Nova MD [address] [facility] [address] [place] [address] PCP - General Family Medicine 10/26/21
[2024-09-22 14:52] LABS: Lactic Acid Reflex 1.4 mmol/L (0.7-2.0)
[2024-09-22 14:53] LABS: Alanine Aminotransferase 18 U/L (6-50); Albumin Level 3.7 g/dL (3.5-5.1); Alkaline Phosphatase 69 U/L (38-126); Anion Gap 8 mmol/L (4-12); Aspartate Amino Transferase 18 U/L (17-59); Bilirubin,Total 0.7 mg/dL (0.2-1.3); Blood Urea Nitrogen 17 mg/dL (9-20); Calcium 8.8 mg/dL (8.4-10.2); Carbon Dioxide 26 mmol/L (22-30); Chloride 105 mmol/L (98-107); Estimated Glomerular Filt Rate > 60; Glucose 197 mg/dL (65-110); Lipase 44 U/L (23-300); Potassium 4.3 mmol/L (3.4-5.0); Sodium 139 mmol/L (137-145)
[2024-09-22 15:13] LABS: Add Urine Microscopic? NO; Appearance Urine Clear (Clear); Bilirubin Urine Negative (Negative); Blood Urine Negative (Negative); Color Urine Yellow (Yellow); Glucose Urine UA 3+ mg/dL (Negative); Ketones Urine Negative (Negative); Leukocyte Esterase Ur Negative LEU/UL (Negative); Nitrate Urine Negative (Negative); Protein Urine Negative (Negative); Specific Grav Ur 1.024 (1.001-1.035); pH Urine 5.5 (5.0-9.0)
[2024-09-22 15:26] VITALS: BP 145/71; PULSE 77; PULSE 78; RESP 15; RESP 19; O2SAT 97
[2024-09-22 15:46] VITALS: BP 140/66; PULSE 77; RESP 25; O2SAT 98
--- NOTE | 2024-09-22 16:10 | PC.NURSE ---
patient used call light needing to use the restroom. patient ambulated with steady gait to and from bathroom with only standby assist. patient resting back in bed, hooked back up to monitor
[2024-09-22 16:15] VITALS: BP 154/75; PULSE 67; RESP 18; O2SAT 100
[2024-09-22 16:46] VITALS: BP 151/82; PULSE 74; RESP 15; O2SAT 100
[2024-09-22] MEDS: HYDROcodone/acetaminophen (*CRX) 5-325 MG TABLET 1 TAB PO (16:47)
--- OUTSIDE RECORDS SUMMARY | 2024-09-22 17:49 | XMS_ITS | Clinical Summary ---
Author Organization [facility] Address [address] [place] [address] Care Team Providers Care Synthetic Department Supervisor Name Role Phone Rodney Nova MD Primary Care Provider Allergies No known active allergies Social History Tobacco Use Types Packs/Day Years Used Date Smoking Tobacco: Never Assessed Personal Safety Answer Date Recorded Getting School Help Needed Not on file 09/21 Sex and Gender Information Value Date Recorded Sex Assigned at Not on file Legal Sex Male 4:03 AM MD OPHTHALMOLOGIST Gender Identity Male 01/21/2023 7:32 PM CDT Sexual Orientation Straight 01/21/2023 7: 32 PM CDT Plan of Treatment Not on file Insurance [facility] [employer] Care Teams Synthetic Department Supervisor Relationship Specialty Start Date End Date Rodney Nova MD [address] [facility] [address] [place] [address] PCP - General Family Medicine 10/26/21
--- OUTSIDE RECORDS SUMMARY | 2024-09-22 17:49 | XMS_ITS | Clinical Summary ---
Author Organization [facility] [employer] Address [address] [facility] [place] [address] Care Team Providers Care Sterile Preparation Technician Name Role Phone Rodney Nova MD Primary Care Provider [phone] Source Comments [facility] [employer]non-owned Affiliates and Associated Physician Practices is amultiple site organization consisting of ambulatory clinics and hospital sitesin [place], [place], [place] and [place]. This disclosure is being madepursuant to the Care Everywhere program and may not contain all information available regarding this patient. Last updated 18.[employer] Allergies No known active allergies Medications * [...] and heating? Not hard at all 01/20/2023 [facility] - Occupational Stress [...] place to sleep or slept in a [facility] (including now)? No 01/20/2023 Sex and Gender [...] faisal Non-reac tive 01/19/2023 2:33 PM CDT [facility] Comment:Hepatitis C Antibody screen indicates no [...] - CHEMISTRY MIGUEL CORTEZ Performing Organization Address City/[facility]/ZIP Co de Phone Number [address] [address], [employer] [phone] * HIV-1 HIV-2 ANTIBODY + HIV P24 AG PANEL (01/19/2023 1:26 PM CDT) HIV Antigen/Antibod y 1 & 2 Non-reacti ve Non-react faisal 01/19/2023 2:33 PM CDT [facility] Comment:No Laboratory eviden ce of HIV infection. Blood BLOOD SPECIMEN / Unknown Venipuncture / Unknown 01/19/2023 1:26 PM CDT 01/19/2023 1:47 PM CDT Stanford Soria MD LAB - CHEMISTRY MIGUEL CORTEZ [address] [address], [facility] [phone] from Last 3 Months or Most Recently Relevant to Health Maintenance Advance Directives * Full Code (Latest Code Status on File) Date Activated Date Inactivated Comments 01/20/2023 11:56 AM 01/21/2023 4:04 PM Care Teams Sterile Preparation Technician Relationship Specialty Start Date End Date Rodney Nova MD [address] [place] [address] PCP - General Family Medicine 06/08/21
--- OUTSIDE RECORDS SUMMARY | 2024-09-22 17:49 | XMS_ITS | Clinical Summary ---
Author Organization [facility] Address [address] [place] [address] Care Team Providers Care Recreation Professor Name Role Phone Giancarlo Candelario Primary Care Provider [phone] Allergies No known active allergies Medications metFORMIN [...] Years) 1960 Annual Physical 12/22/1963 PHQ-2 (Physician Ona) 1972 Zoster Vaccines (1 of 2) 2010 RSV Immunization or 60+ Years (1 - Risk 60-74 years 1-dose series) 2020 COVID-19 Vaccine (2023-2 5 season) 2024 Influenza Adult (#1) 2024 PHQ-2 (Physician Ona) 07/08/2024 DTaP, Tdap and Td Vaccines ( [...] FECAL NEGATIVE NEGATIVE 09/20/2020 10:54 AM CDT [facility] STOOL SPECIMEN / Unknown 09/18/2020 10:38 AM CDT us Sandor Perez MD BODY FLUIDS AND STOOLS ORDER JASVIR Final Result [facility] [address] [place] [address], [place] [phone] from Last 3 Months or Most Recently Relevant to Health Maintenance Insurance [employer] Care Teams Recreation Professor Relationship Specialty Start Date End Date Giancarlo Candelario PA [address] [facility] [address] [place] [id number] PCP - General PHYSICIAN SUPERVISOR PASTRY 11/19/23
--- OUTSIDE RECORDS SUMMARY | 2024-09-22 17:49 | XMS_ITS | Referral Summary ---
Author Organization [facility] Address [address] [place] [address] Care Team Providers Care Gasoline Finisher Name Role Phone Rodney Nova MD Primary Care Provider Allergies No known active allergies Social History Tobacco Use Types Packs/Day Years Used Date Smoking Tobacco: Never Assessed Personal Safety Answer Date Recorded Getting School Help Needed Not on file 09/21 Sex and Gender Information Value Date Recorded Sex Assigned at Not on file Legal Sex Male 4:03 AM HANDLE FINISHER Gender Identity Male 01/21/2023 7:32 PM CDT Sexual Orientation Straight 01/21/2023 7: 32 PM CDT Plan of Treatment Not on file Insurance [facility] [employer] Care Teams Gasoline Finisher Relationship Specialty Start Date End Date Rodney Nova MD [address] [facility] [address] [place] [address] PCP - General Family Medicine 10/26/21
== END 2024-09-22 16:51 | disposition home or self-care (01) ==
PROVIDERS: Physician Assistant; Emergency Provider Emergency Medicine; PCP Family Medicine
DX: K46.9 Unspecified abdominal hernia without obstruction or gangrene (principal); E11.9 Type 2 diabetes mellitus without complications; E78.2 Mixed hyperlipidemia; Z86.0100 Personal history of colon polyps, unspecified; Z87.891 Personal history of nicotine dependence; Z90.49 Acquired absence of other specified parts of digestive tract; Z79.84 Long term (current) use of oral hypoglycemic drugs; Z79.899 Other long term (current) drug therapy; R16.2 Hepatomegaly with splenomegaly, not elsewhere classified
CPT/HCPCS: 36415; 74177; 80053; 81003; 83605; 83690; 85025; 99284; A9270; Q9967

== ENCOUNTER 2024-10-21 10:29 | Outpatient (CLI) | payer OTHER, SELFPAY ==
--- NOTE | ~2024-10-21 | MR_ITS ---
MRI of the abdomen: Clinical indication: Right renal mass. Technique: Coronal SSFSE ARC, WATER:coronal LAVA-FLEX, Coronal 2D FIESTA FatSat, Axial SSFSE BH ARC, Axial 3D DualEcho BH, Axial SSFSE-IR, Axial DWI b=500, Axial 2D FIESTA FatSat, pre and dynamic postco ntrast Axial LAVA ARC, postcontrast Coronal In and Opposed phase LAVA FLEX . Following intravenous ad ministration of 20 cc MultiHance gadolinium, T1-weighted fat-sat imaging was performed in the axial a nd coronal planes. COMPARISON: 09/22/2024 Findings: Gallbladder is absent. The common bile duct is normal in course and caliber. No filling def ects are seen within the CBD. No evidence of intrahepatic biliary ductal dilatation. The pancreatic d uct is normal in size. Liver, spleen, adrenals, appear normal. Small cystic pancreatic lesions are present, largest measurin g 8 mm at the uncinate process. 1.4 cm enhancing mass along the posterior margin of the right kidney is suspicious for small renal cell carcinoma until proven otherwise. Additional simple right renal cy sts are present. Left kidney unremarkable. The aorta and the paraaortic regions appear normal. Impression: 1.4 cm enhancing mass at the posterior margin of the right kidney is suspicious for small renal cell carcinoma until proven otherwise. Reviewed, dictated and finalized at [facility]. Impression: 1.4 cm enhancing mass at the posterior margin of the right kidney is suspicious for small renal cell carcinoma until proven otherwise.
== END 2024-10-21 10:30 | disposition home or self-care (01) ==
LOC: MICIMG 10:31
PROVIDERS: PCP Family Medicine; Visit Provider Physician Assistant
DX: N28.89 Other specified disorders of kidney and ureter (principal)
CPT/HCPCS: 74183; A9577

== ENCOUNTER 2025-01-04 06:36 | Emergency (ER) | payer OTHER, SELFPAY ==
[2025-01-04] VITALS (22 sets, daily range): BP systolic 131–167; BP diastolic 71–97; PULSE 56–86; RESP 13–22; TEMP 36.4; O2SAT 98–100
--- NOTE | ~2025-01-04 | XR_ITS ---
Clinical Indication: Cough PA and lateral views of the chest: Comparison: 02/27/2022 Findings: The lungs are clear, without evidence of focal consolidation or pleural effusion. Cardiome diastinal silhouette is within normal limits. Bones and soft tissues are unremarkable. Impression: Normal chest. Reviewed, dictated and finalized at location . Impression: Normal chest.
[2025-01-04 06:53] LABS: Glucose Point of Care 227 mg/dl (65-105)
--- NOTE | 2025-01-04 06:53 | PC.NURSE ---
Bedside glucose is 227.
--- NOTE | 2025-01-04 07:06 | ECG_ITS ---
Test Date: 2025-01-04 07:16:58 Measurements Intervals Herman Rate: 59 P: 51 [place]: 181 QRS: 23 QRSD: 134 T: 14 QT: 380 QTc: 377 Interpretive Statements SINUS BRADYCARDIA INCOMPLETE LEFT BUNDLE BRANCH BLOCK BASELINE ARTIFACT- I, III, AVL BORDERLINE ECG No previous ECG available for comparison Electronically Signed On 01-04-2025 07:56:27 CDT by Hira Bingham D.O.
--- NOTE | 2025-01-04 07:07 | ED_ITS ---
HPI - General Adult General Chief complaint: Unspecified Stated complaint: blood sugar problems Time Seen by Provider: 01/04/25 07:01 History of Present Illness HPI narrative: Pt presents with complaints of not feeling right. Pt says his head feels a little fuzzy, he has a little tightness in chest but no CP. Pt worked in heat last week and has been feeling bad off and on when in heat since. Pt feels better when inside out of heat. Blood sugars have been in 200's on his metformin. Related Data Allergies Allergy/AdvReac Type Severity Reaction Status Date / Time No Known Allergies Allergy Verified 01/04/25 06:46 Review of Systems 2 Review of Systems: All systems reviewed & are unremarkable except as noted in HPI and below PMFSH Past Medical History Medical History SBO (small bowel obstruction) Obesity Left foot pain Personal history of colonic polyps Primary generalized (osteo)arthritis Type 2 diabetes mellitus without complication, without long-term current use of insulin Mixed hyperlipidemia Slow transit constipation Surgical History Surgical History S/P right rotator cuff repair History of bowel resection reports h/o multiple abd surgeries Status post hernia repair w/ resulting bowel perforation and sepsis Family History Family History Mother Heart disease Diabetes mellitus Other Family history of arthritis Social History Social History Smoking packs per day: 1 Smoking cigarettes per day: 20.0 Years smoked: 5 Smoking pack-years: 5.00 Smoking status: Former smoker Tobacco type: cigarettes Second hand tobacco smoke exposure: No Smoking end date: 07/08/89 Alcohol intake: current Alcohol use details: rare Substance use: never Substance use type: does not use Living arrangements: with family Occupation/Education: occupation Gender identity (if verbalized by the patient): Male Sexual Orientation (if Verbalized by the Patient): Straight or Heterosexual Exam 2 Const: General: cooperative, healthy appearing and no acute distress N utritional Appearance: overweight Orientation/consciousness: patient oriented x3 Limitations: no limitations HENMT: Mouth: Yes Normal oral and palatal mucosa present Neck: Neck: normal visual inspection, full ROM, no lymphadenopathy and no meningeal signs Resp: Effort & Inspection: normal respiratory effort and able to speak in complete sentences Auscultation: clear to auscultation bilaterally Cardio: Rate: regular rate Rhythm: regular rhythm GI: Inspection: normal to inspection GI Palp: Yes Soft to palpation and No Tenderness to palpation present (GI) Auscultation: normal bowel sounds Back/Spine/Pelvis: Back: no CVA tenderness Skin: General skin exam: normal color and no rashes or lesions noted Neuro: General: patient oriented x3, no focal motor deficits and normal sensation to monofilament Extrem: General: full ROM and no clubbing, cyanosis or edema Psych: Appearance: grossly normal Mental Status: mental status grossly normal Speech and movement: Normal speech and movement present Course Vital Signs Vital signs: Vital Signs Temperature 97.6 F 01/04/25 06:44 Pulse Rate 70 01/04/25 06:44 Respiratory Rate 18 01/04/25 06:44 Blood Pressure 167/82 H 01/04/25 06:44 Pulse Oximetry 99 01/04/25 06:44 Oxygen Delivery Room Air 01/04/25 06:44 Temperature 97.6 F 01/04/25 06:44 Pulse Rate 58 L 01/04/25 09:32 Respiratory Rate 13 01/04/25 09:32 Blood Pressure 140/84 01/04/25 09:32 Pulse Oximetry 100 01/04/25 09:32 Oxygen Delivery Room Air 01/04/25 06:44 Medical Decision Making MDM Narrative Medical decision making narrative: Pt presents with some non specific complaints of not feeling well. will give some IV fluids and check some labs and ekg and reassess. labs reassuring, mild hyperglycemia no end organ issues or dka. Vital Signs Vital Signs: Vital Signs Temperature 97.6 F 01/04/25 06:44 Pulse Rate 70 01/04/25 06:44 Respiratory Rate 18 01/04/25 06:44 Blood Pressure 167/82 H 01/04/25 06:44 Pulse Oximetry 99 01/04/25 06:44 Oxygen Delivery Room Air 01/04/25 06:44 Temperature 97.6 F 01/04/25 06:44 Pulse Rate 58 L 01/04/25 09:32 Respiratory Rate 13 01/04/25 09:32 Blood Pressure 140/84 01/04/25 09:32 Pulse Oximetry 100 01/04/25 09:32 Oxygen Delivery Room Air 01/04/25 06:44 Lab Data 01/04/25 07:31 01/04/25 07:31 Labs: Lab Results 01/04/25 01/04/25 Range/Units 06:50 07:31 WBC 5.6 (4.5-10.0) K/mm3 RBC 4.72 (4.6-6.20) M/mm3 Hgb 13.7 L (14.0-18.0) g/dL Hct 42.6 (42.0-52.0) % MCV 90.3 (80-100) fl MCH 29.0 (26-34) pg MCHC 32.2 (32-36) g/dl RDW 13.9 (11.5-14.5) % Plt Count 137 L (150-375) k/mm3 MPV 10.6 H (7.4-10.4) fl Immature Gran % (Auto) 0.4 (0-0.5) % Neut % (Auto) 66.0 (45.5-73.1) % Lymph % (Auto) 22.5 (18.3-44.2) % [place] % (Auto) 6.1 (2.6-8.5) % Eos % (Auto) 4.6 H (0-4.4) % Baso % (Auto) 0.4 (0.2-1.2) % Lymph # (Auto) 1.26 (0.9-3.2) K/mm3 [place] # (Auto) 0.3 (0.1-0.6) K/mm3 Eos # (Auto) 0.3 (0-0.3) K/mm3 Baso # (Auto) 0.0 (0.0-0.1) K/mm3 Abs Immat Gran (auto) 0.02 (0.00-0.031) K/mm3 Absolute Neuts (auto) 3.7 (1.3-6.7) K/mm3 Absolute Nucleated RBC 0.000 (0.0-0.012) K/mm3 Nucleated RBC % 0.0 (0.0-0.2) % % Immature Plt Fraction 4.8 (0.9-11.2) % PT 13.4 (11.1-14.7) Seconds INR 1.0 APTT 24.6 (22.3-36.8) Seconds Sodium 138 (137-145) mmol/L Potassium 4.8 (3.4-5.0) mmol/L Chloride 105 (98-107) mmol/L Carbon Dioxide 24 (22-30) mmol/L Anion Gap 9 (4-12) mmol/L BUN 24 H (9-20) mg/dL Creatinine 0.88 (0.7-1.3) mg/dL Estim Creat Clear Calc 112 ml/min Estimated GFR > 60 (59 - ) Glucose 228 H (65-110) mg/dL POC Capillary Glucose 227 H (65-105) mg/dl Calcium 9.7 (8.4-10.2) mg/dL Total Bilirubin 0.5 (0.2-1.3) mg/dL AST 22 (17-59) U/L ALT 18 (6-50) U/L Alkaline Phosphatase 56 (38-126) U/L Troponin I 0.013 (0.000-0.034) ng/mL Total Protein 6.8 (6.3-8.2) g/dL Albumin 3.9 (3.5-5.1) g/dL Urine Color Yellow (Yellow) Urine Appearance Clear (Clear) Urine pH 5.5 (5.0-9.0) Ur Specific [place] 1.023 (1.001-1.035) Urine Protein Negative (Negative) mg/dL Urine Glucose (UA) 3+ H (Negative) mg/dL Urine Ketones Negative (Negative) mg/dL Ur Blood (Man) Negative (Negative) Urine Nitrate Negative (Negative) Urine Bilirubin Negative (Negative) Urine Urobilinogen 1.0 (<2.0) mg/dL Leukocyte Esterase Rfl Negative (Negative) KATIE/UL Discharge Plan Discharge Clinical Impression: Hyperglycemia Patient Disposition: Home Condition: Stable Instructions: Antibiotic Form, Diabetic Hyperglycemia (ED) Patient Language: Malian Prescriptions: No Action hydrocodone-acetaminophen 5-325 mg tablet 1 tablet PO Q12H PRN (Reason: pain) Qty: 14 0RF cholecalciferol (vitamin D3) 125 mcg (5,000 unit) capsule See Rx Instructions .ROUTE .COMPLEX Qty: 90 2RF Dose Instruction: TAKE 1 CAPSULE DAILY Rx Instructions: TAKE 1 CAPSULE DAILY ibuprofen 800 mg tablet 800 mg PO BID PRN (Reason: pain) Qty: 180 2RF metformin 500 mg tablet extended release 24 hr 1,500 mg PO DAILY Qty: 270 3RF valsartan 80 mg tablet 120 mg PO DAILY Qty: 135 1RF rosuvastatin 20 mg tablet See Rx Instructions .ROUTE .COMPLEX Qty: 90 2RF Dose Instruction: TAKE 1 TABLET DAILY Rx Instructions: TAKE 1 TABLET DAILY Follow-up/Referrals: Rodney Nova MD [Primary Care Provider] - Stand Alone Forms: Work/School Release IP
[2025-01-04] MEDS: SODIUM CHLORIDE 0.9% IV 1,000 ML 999 ML IV CONT (07:25)
[2025-01-04 07:40] LABS: Add Urine Microscopic? NO; Appearance Urine Clear (Clear); Basophils Percent Auto 0.4 % (0.2-1.2); Bilirubin Urine Negative (Negative); Blood Urine Negative (Negative); Color Urine Yellow (Yellow); Eosinophils Absolute Auto 0.3 K/mm3 (0-0.3); Eosinophils Percent Auto 4.6 % (0-4.4); Glucose Urine UA 3+ mg/dL (Negative); Hematocrit 42.6 % (42.0-52.0); Hemoglobin 13.7 g/dL (14.0-18.0); Immature Granulocyte Absolute 0.02 K/mm3 (0.00-0.031); Immature Granulocyte Percent A 0.4 % (0-0.5); Immature Platelet Fraction Pct 4.8 % (0.9-11.2); Ketones Urine Negative (Negative); Leukocyte Esterase Ur Negative LEU/UL (Negative); Lymphocytes Absolute Auto 1.26 K/mm3 (0.9-3.2); Lymphocytes Percent Auto 22.5 % (18.3-44.2); Mean Corpuscular HGB Conc 32.2 g/dl (32-36); Mean Corpuscular Volume 90.3 fl (80-100); Mean Platelet Volume 10.6 fl (7.4-10.4); Monocytes Absolute Auto 0.3 K/mm3 (0.1-0.6); Monocytes Percent Auto 6.1 % (2.6-8.5); Neutrophils Absolute Auto 3.7 K/mm3 (1.3-6.7); Nitrate Urine Negative (Negative); Platelet Count Result 137 k/mm3 (150-375); Protein Urine Negative (Negative); Red Blood Count 4.72 M/mm3 (4.6-6.20); Red Cell Distribution Width 13.9 % (11.5-14.5); Specific Grav Ur 1.023 (1.001-1.035); White Blood Count 5.6 K/mm3 (4.5-10.0); pH Urine 5.5 (5.0-9.0)
[2025-01-04 07:51] LABS: Alanine Aminotransferase 18 U/L (6-50); Albumin Level 3.9 g/dL (3.5-5.1); Alkaline Phosphatase 56 U/L (38-126); Anion Gap 9 mmol/L (4-12); Aspartate Amino Transferase 22 U/L (17-59); Bilirubin,Total 0.5 mg/dL (0.2-1.3); Blood Urea Nitrogen 24 mg/dL (9-20); Calcium 9.7 mg/dL (8.4-10.2); Carbon Dioxide 24 mmol/L (22-30); Chloride 105 mmol/L (98-107); Estimated CRCL calculation 112 ml/min; Estimated Glomerular Filt Rate > 60; Glucose 228 mg/dL (65-110); Potassium 4.8 mmol/L (3.4-5.0); Sodium 138 mmol/L (137-145); Total Protein 6.8 g/dL (6.3-8.2)
[2025-01-04 08:02] LABS: Troponin I 0.013 ng/mL (0.000-0.034)
[2025-01-04 08:19] LABS: Prothrombin Time 13.4 Seconds (11.1-14.7)
[2025-01-04 08:20] LABS: Partial Thromboplastin Time 24.6 Seconds (22.3-36.8)
== END 2025-01-04 09:42 | disposition home or self-care (01) ==
PROVIDERS: Emergency Provider Emergency Medicine; PCP Family Medicine
DX: E11.65 Type 2 diabetes mellitus with hyperglycemia (principal); E78.2 Mixed hyperlipidemia; Z87.891 Personal history of nicotine dependence
CPT/HCPCS: 36415; 71046; 80053; 81003; 82948; 84484; 85025; 85055; 85610; 85730; 93005; 96360; 99284; J7030

== ENCOUNTER 2025-02-10 10:21 | Emergency (ER) | payer OTHER, SELFPAY ==
--- NOTE | 2025-02-10 10:32 | ED_ITS ---
HPI - Extremity Problem General Chief complaint: Extremity Problem,Nontraumatic Stated complaint: R leg r/o blood clot Time Seen by Provider: 02/10/25 10:32 Source: patient Mode of arrival: ambulatory Limitations: no limitations History of Present Illness HPI Narrative: 64 yo M presents with pain to R thigh and posterior knee for 3 days. Pain worse today. Tender to touch with redness and warmth. had biopsy of R kidney 2 wks ago. Reports no results yet for biopsy. concerned he may have DVT. All systems reviewed and negative except as noted above. Related Data Allergies Allergy/AdvReac Type Severity Reaction Status Date / Time No Known Allergies Allergy Verified 02/10/25 10:29 [facility] Past Medical History Medical History (Updated 02/10/25 @ 10:46 by Gabriela Tolbert NP) Inadequately controlled diabetes mellitus SBO (small bowel obstruction) Obesity Left foot pain Personal history of colonic polyps Primary generalized (osteo)arthritis Type 2 diabetes mellitus without complication, without long-term current use of insulin Mixed hyperlipidemia Slow transit constipation Surgical History Surgical History S/P right rotator cuff repair History of bowel resection reports h/o multiple abd surgeries Status post hernia repair w/ resulting bowel perforation and sepsis Family History Family History Mother Heart disease Diabetes mellitus Other Family history of arthritis Social History Social History Smoking packs per day: 1 Smoking cigarettes per day: 20.0 Years smoked: 5 Smoking pack-years: 5.00 Smoking status: Former smoker Tobacco type: cigarettes Second hand tobacco smoke exposure: No Smoking end date: 07/08/89 Alcohol intake: current Alcohol use details: rare Substance use: never Substance use type: does not use Living arrangements: with family Occupation/Education: occupation Gender identity (if verbalized by the patient): Male Sexual Orientation (if Verbalized by the Patient): Straight or Heterosexual Comments At time of signature, agree with nursing past medical, surgical, social and family history. There is no relevant family history pertinent to the presenting complaint. Exam Narrative: GENERAL: This is a well-nourished, well-developed patient, in no apparent distress. HEAD: normocephalic, atraumatic. EYES: PERRL. Sclera clear/white. Vision is grossly intact. EARS: External ears normal NOSE: External nose normal NECK: Neck supple, non-tender without lymphadenopathy, masses or thyromegaly. CARDIOVASCULAR: Regular rate and rhythm without murmurs, gallops, or rubs. RESPIRATORY: Clear to auscultation. Breath sounds equal bilaterally. No wheezes, rales, or rhonchi. SKIN: warm, Dry, intact with no suspicious lesions or rash, good texture and turgor. NEURO: awake, alert, and oriented to person, place and time. There were no obvious focal neurologic abnormalities. EXTREMITIES: tender to medial R thigh and posterior knee. warm to touch. no fluctuance. superficial tender, swollen vein noted. Course Course Level of Care: Express Care Visit Vital Signs Vital signs: Vital Signs Temperature 36.4 C 02/10/25 10:33 Pulse Rate 68 02/10/25 10:33 Respiratory Rate 16 02/10/25 10:33 Blood Pressure 132/54 L 02/10/25 10:33 Pulse Oximetry 100 02/10/25 10:33 Temperature 36.4 C 02/10/25 10:33 Pulse Rate 68 02/10/25 10:33 Respiratory Rate 16 02/10/25 10:33 Blood Pressure 132/54 L 02/10/25 10:33 Pulse Oximetry 100 02/10/25 10:33 reviewed Transfer Transfered to: [place] Transportation: Other (private vehicle with ) Transfer rationale: transferring to ER to ultrasound RLE Accepting physician: Dr. Ivey MDM - Extremity (Nontraumatic) MDM Narrative Medical decision making narrative: transferring pt to ER to rule out DVT. Report give to Dr. Ivey. Discharge Plan Discharge Clinical Impression: Acute pain of right thigh Patient Disposition: Acute Care Hospital Condition: Stable Patient Language: Divehi Prescriptions: No Action cholecalciferol (vitamin D3) 125 mcg (5,000 unit) capsule See Rx Instructions .ROUTE .COMPLEX Qty: 90 2RF Dose Instruction: TAKE 1 CAPSULE DAILY Rx Instructions: TAKE 1 CAPSULE DAILY ibuprofen 800 mg tablet 800 mg PO BID PRN (Reason: pain) Qty: 180 2RF valsartan 80 mg tablet 120 mg PO DAILY Qty: 135 1RF rosuvastatin 20 mg tablet See Rx Instructions .ROUTE .COMPLEX Qty: 90 2RF Dose Instruction: TAKE 1 TABLET DAILY Rx Instructions: TAKE 1 TABLET DAILY metformin 500 mg tablet extended release 24 hr 2,000 mg PO DAILY Qty: 360 3RF Follow-up/Referrals: Giancarlo Candelario PA-C [Primary Care Provider] - Time of Disposition: 10:46
[2025-02-10 10:33] VITALS: BP 132/54; PULSE 68; RESP 16; TEMP 36.4; O2SAT 100
== END 2025-02-10 10:44 | disposition short-term general hospital (02) ==
PROVIDERS: Emergency Provider Nurse Practitioner Family; PCP Physician Assistant
DX: M79.651 Pain in right thigh (principal); E11.9 Type 2 diabetes mellitus without complications; Z79.84 Long term (current) use of oral hypoglycemic drugs; E66.9 Obesity, unspecified; Z68.41 Body mass index [BMI] 40.0-44.9, adult; M19.90 Unspecified osteoarthritis, unspecified site; E78.2 Mixed hyperlipidemia; Z87.891 Personal history of nicotine dependence
CPT/HCPCS: 99212; G0463

== ENCOUNTER 2025-02-10 11:08 | Emergency (ER) | payer OTHER, SELFPAY ==
--- NOTE | ~2025-02-10 | US_ITS ---
EXAMINATION:US venous doppler LE BI INDICATION:Leg swelling TECHNIQUE: Multiple grayscale, color flow and Doppler images of the right and left lower extremity de ep venous systems were obtained and reviewed. COMPARISON:No prior studies for comparison. FINDINGS: The common femoral, superficial femoral and popliteal veins demonstrate normal respiratory variation, augmentation and compressibility. Color flow is also seen within the posterior tibial, pe roneal, and profunda veins. There is superficial venous thrombosis of the right greater saphenous and bilateral lesser saphenous veins. IMPRESSION: 1: No lower extremity deep venous thrombosis. 2: Superficial venous thrombosis of the right greater and bilateral lesser saphenous veins. Reviewed, dictated and finalized at location A. IMPRESSION: 1: No lower extremity deep venous thrombosis. 2: Superficial venous thrombosis of the right greater and bilateral lesser saph enous veins.
[2025-02-10 11:14] VITALS: BP 121/65; PULSE 64; RESP 18; TEMP 36.3; O2SAT 100
--- OUTSIDE RECORDS SUMMARY | 2025-02-10 11:51 | XMS_ITS | Clinical Summary ---
Author Organization [facility] Address [address] [place] [address] Care Team Providers Care Naturopath Name Role Phone Rodney Nova MD Primary Care Provider Allergies No known active allergies Medications cholecalciferol (VITAMIN D-3) 5,000 unit capsuleIndication s:supplement Take 1 capsule (5,000 Units total) by mouth every morning Active metFORMIN (GLUCOPHAGE) 500 mg tabletIndications :type 2 diabetes mellitus Take 4 tablets (2,000 mg total) by mouth daily with breakfast 07/08/19 21 Active rosuvastatin 20 mg capsule, sprinkleIndicatio ns:hyperlipidemia Take 20 mg by mouth every morning Active terbinafine (LamiSIL) 250 mg tabletIndications :toenail onychomycosis Take 1 tablet (250 mg total) by mouth every morning Active valsartan (DIOVAN) 80 mg tabletIndications :hypertension Take 1.5 tablets (120 mg total) by mouth every morning Active ibuprofen (ADVIL,MOTRIN) 800 mg tablet Take 1 tablet (800 mg total) by mouth every 6 (six) hours as needed for pain Active ondansetron (ZOFRAN) 8 mg tablet Take 1 tablet (8 mg total) by mouth 2 (two) times a day as needed for nausea or vomiting 10 tablet 01/29/20 25 Active senna (SENOKOT) 8.6 mg tablet Take 1 tablet by mouth nightly as needed for constipation 10 tablet 01/29/20 25 Active oxyCODONE (ROXICODONE) 5 mg immediate release tabletIndications :Pain Take 1 tablet (5 mg total) by mouth 4 (four) times a day as needed for pain 10 tablet 01/29/20 25 Active albuterol HFA (PROVENTIL HFA,VENTOLIN HFA,PROAIR HFA) 90 mcg/actuation inhaler USE 2 PUFF INHALED FOUR TIMES DAILY NEEDED FOR SHORTNESS OF BREATH, WHEEZING, SHORTNESS OF BREATH 025 Discontin ued(Thera py completed ) azithromycin (ZITHROMAX) 250 mg tablet TAKE 2 TABLETS BY MOUTH TODAY, THEN TAKE 1 TABLET DAILY FOR 4 DAYS 025 Discontin ued(Thera py completed ) HYDROcodone-aceta minophen (NORCO) 5-325 mg per tablet Take 1 tablet by mouth every 12 (twelve) hours as needed for pain for pain 09/23/19 25 025 Discontin ued(Thera py completed ) IBU 800 mg tablet Take 1 tablet (800 mg total) by mouth 2 (two) times a day as needed for pain 025 Discontin ued(Thera py completed ) meclizine (ANTIVERT) 25 mg tablet Take 1 tablet (25 mg total) by mouth 025 Discontin ued(Thera py completed ) oxyCODONE-acetami nophen (PERCOCET) 5-325 mg per tablet Take by mouth every 6 (six) hours as needed 025 Discontin ued(Thera py completed ) tamsulosin (FLOMAX) 0.4 mg extended release capsuleIndication s:benign prostatic hyperplasia with lower urinary tract sx Take 1 tablet by mouth 025 Discontin ued(Thera py completed ) Active Problems Problem Noted Date Diagnosed Date Renal mass 01/27/2025 Right renal mass 01/27/2025 Assessment & Plan (01/28/2025 9:02 AM CDT): Incidentally discovered exophytic 1.4 cm right renal mid-pole mass. S/p cryablation on 01/27 - admitted for overnight observation, no complications noted - dc with prn zofran, senna, oxy per IR - repeat MRI in 3-6 months Assessment & Plan (01/27/2025 1:07 PM CDT): incidentally discovered exophytic 1.4 cm right renal mid-pole mass. S/p cryablation on 01/27 -pain control -supportive care and monitoring Primary hypertension 01/27/2025 Assessment & Plan (01/28/2025 9:02 AM CDT): losartan while inpatient. (valsartan at home) Assessment & Plan (01/27/2025 1:07 PM CDT): losartan while inpatient. (valsartan at home) DM (diabetes mellitus) 01/27/2025 Assessment & Plan (01/28/2025 9:02 AM CDT): On metformin ER, last A1c 8.2 - no insulin needs, resume metformin Assessment & Plan (01/27/2025 5:43 PM CDT): On metformin ER, last A1c 8.2 SSI Monitor. Pre-diabetes 11/18/2023 Primary osteoarthritis of knees, bilateral 11/17 Generalized abdominal pain 01/20/2023 Encounters Date Type Department Care Team Description 01/29/2025 Telephone [facility] - Interventional Radiology [address] [place] [address] Lana Flores RN 01/27/2025 12:16 PM CDT - 01/28/2025 9:52 AM CDT Hospital Encounter [address] [phone] Darwin Anderson MD Moller, MD Kirt Fermin, MD Miles Mittal, Adrian Brizuela, MD Sloane PhD Yves, Cliff Sanon, MACHINE FEED OPERATOR Renal mass Discharge Disposition: Discharge to home or self care 01/27/2025 8:42 AM CDT Anesthesia Event [facility] Radiology [address] [place] [address] Sloane Brizuela MD PhD Angelita Becerra NP 01/27/2025 Telephone Radiology [address] [place] [address] Molly Calabrese PA 01/22/2025 Telephone [facility] Radiology [address] [place] [address] Brendan Sweeney, [place] 01/13/2025 1:00 PM CDT Pre-Admission Testing [facility] Center for Preoperative Assessment and Planning [facility] ([facility]) [address] [place] [address] Preop examination (Primary Dx) 2024 Telephone [facility] Radiology [address] [place] [address] Larissa Bearden RN 12/07/2024 11:00 AM CDT Office Visit [facility] Radiology, Interventional Radiology [address] [phone] Sumeet Moralez MD Renal mass, right (Primary Dx); Pre-diabetes 12/07/2024 Telephone [facility] Radiology, Interventional Radiology [address] [phone] Larissa Da Silva, [place] 11/26/2024 Telephone [facility] - Interventional Radiology [address] [place] [phone] Lana Flores RN 11/19/2024 Orders Only [facility] - Interventional Radiology [address] [place] [phone] Lana Flores RN Renal mass (Primary Dx); Renal mass, right from Last 3 Months Surgical History Surgery Date Site/Laterality Comments ABDOMINAL HERNIA REPAIR x3 CRYOABLATION RENAL RIGHT 01/27/2025 Right Medical History Medical History Date Comments Hypertension Type 2 diabetes mellitus Sleep apnea Family History Medical History Relation Name Comments Anesthesia problems Neg Hx Social History Tobacco Use Types Packs/Day Years Used Date Smoking Tobacco: Former Cigarettes 1 4 1 978 - 1981 Passive Smoke Exposure: Past Tobacco Cessation:Counseling Given: Not Answered AUDIT-C Answer Date Recorded Q1: How often do you have a drink containing alc ohol? Monthly or less 01/13/2025 Q2: How many drinks containi ng alcohol do you have on a typical day when you are drinking? 1 or 2 01/13/2025 Q3: How often do you have si x or more drinks on one occasion? Never 01/13/2025 Personal Safety Answer Date Recorded Have you ever been in or are you currently in a harmful physical or emotional relationship or is someone making you feel afraid or unsafe? 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 Gender Identity Male 01/21/2023 7:32 PM CDT Sexual Orientation Straight 01/21/2023 7: 32 PM CDT Obstetrics History Last Filed Vital Signs Vital Sign Reading Time Taken Comments Blood Pressure 141/73 01/28/2025 7:45 AM CDT Pulse 60 01/28/2025 7:45 AM CDT Temperature 36.5 C (97.7 F) 01/28/2025 7:45 AM CDT Respiratory Rate 16 01/28/2025 7:45 AM CDT Oxygen Saturation 99% 01/28/2025 7:45 AM CDT Inhaled Oxygen Concentration - - Weight 136.1 kg (300 lb 0.7 oz) 01/27/2025 5:50 PM CDT Height 185.4 cm (6' 1) 01/27/2025 5:50 PM CDT Body Mass Index 39.59 01/27/2025 5:50 PM CDT Plan of Treatment Health Maintenance Due Date Last Done Comments Albumin Creatinine Ratio, Urine 1960 Colon Cancer Screening-Colonoscopy 1960 Depression Screening 1960 Hepatitis C Screening 1960 Prostate Cancer Screening-PSA 1960 Dilated Eye Exam 1960 Foot Exam 1960 Lipid Panel 1960 Hepatitis B Screening 1978 Regular Well Visit/Exam 18-64 1978 Pneumococcal vaccine <65 (1 of 2 - PCV) 12/22/1979 Zoster Vaccine (1 of 2) 2010 Influenza Vaccine (#1) 2025 Hemoglobin A1C 07/16/2025 01/13/2025, 01/21/2023 eGFR 01/27/2026 01/27/2025, 07/0 03/2025, 03/05/2017 DTaP/Tdap/Td Vaccine (2 - Td or Tdap) 05/30/2032 Procedures Procedure Name Priority Date/Time Associated Diagnosis Comments POCT GLUCOSE DEVICE Routine 01/28/2025 7 :47 AM CDT POCT GLUCOSE DEVICE Routine 01/27/2025 7 :52 PM CDT POCT GLUCOSE DEVICE Routine 01/27/2025 6 :06 PM CDT EGFR Routine 01/27/2025 3:53 PM CDT CBC WITHOUT DIFFERENTIAL Routine 01/27/2025 3:53 PM CDT BASIC METABOLIC PANEL Routine 01/27/2025 3:53 PM CDT POCT GLUCOSE DEVICE Routine 01/27/2025 1 1:04 AM CDT CRYOABLATION RENAL RIGHT Schedule Routine, Read Routine (OP Routine) 01/27/2025 11:03 AM CDT Renal mass SURGICAL PATHOLOGY Routine 01/27/2025 10 :04 AM CDT Renal mass AL AN PROCEDURE PLACEHOLDER Routine 01/27/2025 9:31 AM CDT AL AN ELECTIVE ENDOTRACHEAL AIRWAY Routine 01/27/2025 9:31 AM CDT POCT GLUCOSE DEVICE Routine 01/27/2025 7 :45 AM CDT EGFR Routine 01/13/2025 2:03 PM CDT Preop examination BASIC METABOLIC PANEL Routine 01/13/2025 2:03 PM CDT Preop examination CBC WITHOUT DIFFERENTIAL Routine 01/13/2025 2:03 PM CDT Preop examination TYPE AND SCREEN 14 DAY Routine 01/13/2025 2:03 PM CDT Preop examination POCT HEMOGLOBIN A1C Routine 01/13/2025 1 :27 PM CDT from Last 3 Months Results * POCT glucose (01/28/2025 7:47 AM CDT) Glucose, POC 150 70 - 199 mg/dL Blood 01/28/2025 7:47 AM CDT 01/28/2025 7:47 AM CDT Judy Amato MD LAB POCT ORDERABLES - DEV ICE Final Result Performing Organization Address [facility] Co de Phone Number [facility] Department [place] [address] * (ABNORMAL) POCT glucose (01/27/2025 7:52 PM CDT) Glucose, POC 274(H) 70 - 199 mg/dL Blood 01/27/2025 7:52 PM CDT 01/27/2025 7:52 PM CDT Darwin Anderson MD LAB POCT ORDERABLES - DEVICE Final Result Performing Organization Address City/[facility]/ZIP Co de Phone Number [facility] Department [place] [address] * (ABNORMAL) POCT glucose (01/27/2025 6:06 PM CDT) Glucose, POC 230(H) 70 - 199 mg/dL Blood 01/27/2025 6:06 PM CDT 01/27/2025 6:06 PM CDT Darwin Anderson MD LAB POCT ORDERABLES - DEVICE Final Result Performing Organization Address [facility] Co de Phone Number [facility] Department [place] [address] * eGFR (01/27/2025 3:53 PM CDT) [facility] eGFR 84 >=60 mL/min/1. 73 m2 Comment: Interpretive Data Reference Interval Normal >/= 90 mL/min/1.73m2 Mildly decreased* 60 - 89 mL/min/1.73m2 Mildly to moderately decreased 45 - 59 mL/min/1.73m2 Moderately to severely decreased 30 - 44 mL/min/1.73m2 Severely decreased 15 - 29 mL/min/1.73m2 Kidney Failure < 15 mL/min/1.73m2 *Relative to young adult level Estimated glomerular filtration rate is determined by the 2020 CKD-EPI equation recommended by the National Kidney Foundation (A Unifying Approach to GFR Estimation: Recommendations of the NKF-ASK Task Force on Reassessing the Inclusion of Race in Diagnosing Kidney Disease, JASN 2020). The CKD-EPI equation should not be used for patients with unstable renal function and has not been validated in children and those over 70. Current interpretive data was last reviewed 2021. Blood 01/27/2025 3:53 PM CDT 01/27/2025 4:07 PM CDT Dylon Rizo MD LAB BLOOD ORDERA BLES Final Result Performing Organization Address [facility] Co de Phone Number NIKKY [facility] Department [place] [address] * (ABNORMAL) CBC without differential (01/27/2025 3:53 PM CDT) [facility] WBC 8.26 3.80 - 9.90 K/cumm Hgb 14.1 13.0 - 17.5 g/dL [facility] Hct 42.7 38.9 - 50.3 % [facility] Plt 149(L) 150 - 400 K/cumm [facility] MPV 10.6 9.1 - 12.3 fL [facility] RBC 4.84 4.30 - 5.80 M/cumm [facility] MCV 88.2 81.3 - 96.4 fL [facility] MCH 29.1 27.1 - 33.3 pg [facility] MCHC 33.0 32.3 - 35.7 g/dL [facility] RDW CV 14.6 11.1 - 14.9 % [facility] RDW SD 46.5 35.7 - 48.1 fL [facility] NRBC abs 0.00 0.00 - 0.01 K/cumm [facility] Blood 01/27/2025 3:53 PM CDT 01/27/2025 4:07 PM CDT Dylon Rizo MD LAB BLOOD ORDERA BLES Final Result [facility] Department [place] [address] * (ABNORMAL) Basic metabolic panel (01/27/2025 3:53 PM CDT) Sodium 142 135 - 145 mmol/L Potassium, pl 4.7 3.3 - 4.9 mmol/L [facility] Chloride 106 97 - 110 mmol/L [facility] CO2 24 22 - 32 mmol/L [facility] Anion gap 12 2 - 15 mmol/L [facility] BUN 20 6 - 25 mg/dL [facility] Creatinine 1.00 0.80 - 1.30 mg/dL [facility] Glucose 239(H) 70 - 199 mg/dL [facility] Comment: Interpretive Data Fasting glucose >/= 126 mg/dl is diagnostic for diabetes. Fasting is defined as no caloric intake for at least 8 hours. Fasting glucose between 100 mg/dl to 125 mg/dl is diagnostic of prediabetes. In a patient with classic symptoms of hyperglycemia or hyperglycemic crisis, a random glucose >/= 200 mg/dl is diagnostic for diabetes. In the absence of unequivocal hyperglycemia, results should be confirmed by repeat testing. The classification and Diagnosis of Diabetes Diabetes Care 2021; 46: S19-S40. Current interpretive data was last revised 2022. Calcium 9.8 8.5 - 10.3 mg/dL [facility] Blood 01/27/2025 3:53 PM CDT 01/27/2025 4:07 PM CDT Dylon Rizo MD LAB BLOOD ORDERA BLES Final Result Performing Organization Address City/[facility] Co de Phone Number [facility] Department [place] [address] * POCT glucose (01/27/2025 11:04 AM CDT) Glucose, POC 139 70 - 199 mg/dL Blood 01/27/2025 11:0 4 AM CDT 01/27/2025 11:04 AM CDT Darwin Anderson MD LAB POCT ORDERABLES - DEVICE Final Result Performing Organization Address [facility] de Phone Number [facility] Department [place] [employer] [place] [address] * IR Cryoablation Renal Right (01/27/2025 11:03 AM CDT) Anatomical Region Laterality Modality Body Right Computed Tomogra phy 01/27/2025 10:5 8 AM CDT Impressions 01/28/2025 1:50 PM CDT Successful percutaneous cryoablation of right renal mass. PLAN: The patient will follow up with renal MRI in 3 months to assess tumor response to therapy. Dictated by: Jono Padilla M.D. The radiology attending physician has personally reviewed this study, and had reviewed and/or edited this written report and agrees with it. Electronically signed by: Sumeet Moralez M.D. Narrative 01/28/2025 1:50 PM CDT EXAMINATION: CT-GUIDED PERCUTANEOUS CRYOABLATION OF RIGHT RENAL TUMOR HISTORY/INDICATION: 64 year old male with incidentally noted exophytic 1.4 cm right renal mid-pole mass. He is not on anti-coagulation with Plt 178, creatinine 0.9. ATTENDING PRESENCE: Sumeet Moralez M.D., the attending radiologist was present from the beginning to the end of the procedure. SEDATION: The procedure was done under General Anesthesia. TECHNIQUE: The risks, benefits and alternatives were discussed and informed consent was obtained. Prior to beginning the procedure, [place] Protocol was performed to confirm the patient's identity and the planned procedure. For procedures that utilize fluoroscopy, the fluoroscopy time has been recorded in the electronic medical record. Maximum sterile barriers including cap, mask, hand hygiene, sterile gloves, sterile gown, large sterile drape and 2% chlorhexidine for cutaneous antisepsis were used. The patient was placed in the prone position on the CT table and an initial scan of the kidneys was performed and the patient's known tumor was localized. An appropriate access site was localized and the overlying skin was infiltrated with 1% lidocaine. Under CT guidance two Cryo-probes were advanced into the mass under CT guidance separate from the biopsy access site. Subsequently under CT guidance, a coaxial needle biopsy system was utilized. The outer needle was advanced adjacent to the interpolar posterior left renal tumor under intermittent image guidance. After positioning the outer needle adjacent to the target, an inner core biopsy device was advanced into the target. A total of two core biopsies were obtained from the intended target. The biopsy samples were placed in formalin. Needle(s) utilized: Core Biopsy Needle: Tuloko-easy 18 gauge 20 cm Cryoablation was then performed for 10 minutes at temperatures below -40 degrees Celsius with imaging obtained at the 5 minutes and 10 olivares. Imaging showed appropriate formation of an ice ball around the tumor. Following an 7 minute period of passive thaw, cryoablation was repeated for an additional 10 minutes with repeated imaging at the 5 and 10 olivares demonstrating appropriate ice ball formation. Following 7 minutes of passive thaw, the Cryoprobes were removed with temperatures measuring greater than 20 degrees Celsius. One station cautery was one. Final CT imaging demonstrated complete encasement of the organ tumor by the ice ball. No complications were seen. Throughout the procedure the patient's vital signs remained stable. ESTIMATED BLOOD LOSS: Minimal CONDITION: Stable condition DISCHARGED TO: recovery and subsequently to patient care division. FINDINGS: Initial CT images redemonstrate the 1.4 cm exophytic right renal mass. Procedural images demonstrate appropriate positioning of the ablation probes within the cephalad and caudal aspects of the mass. The biopsy introducer is appropriately positioned at the margin of the mass. The images obtained during ablation show appropriate encasement of the mass by the ice ball. Final images demonstrate the entirety of the mass to be encased by the ice ball with no evidence of immediate complications. Procedure Note Sumeet Moralez MD - 01/28/2025 EXAMINATION: CT-GUIDED PERCUTANEOUS CRYOABLATION OF RIGHT RENAL TUMOR HISTORY/INDICATION: 64 year old male with incidentally noted exophytic 1.4 cm right renal mid-pole mass. He is not on anti-coagulation with Plt 178, creatinine 0.9. ATTENDING PRESENCE: Sumeet Moralez M.D., the attending radiologist was present from the beginning to the end of the procedure. SEDATION: The procedure was done under General Anesthesia. TECHNIQUE: The risks, benefits and alternatives were discussed and informed consent was obtained. Prior to beginning the procedure, [place] Protocol was performed to confirm the patient's identity and the planned procedure. For procedures that utilize fluoroscopy, the fluoroscopy time has been recorded in the electronic medical record. Maximum sterile barriers including cap, mask, hand hygiene, sterile gloves, sterile gown, large sterile drape and 2% chlorhexidine for cutaneous antisepsis were used. The patient was placed in the prone position on the CT table and an initial scan of the kidneys was performed and the patient's known tumor was localized. An appropriate access site was localized and the overlying skin was infiltrated with 1% lidocaine. Under CT guidance two Cryo-probes were advanced into the mass under CT guidance separate from the biopsy access site. Subsequently under CT guidance, a coaxial needle biopsy system was utilized. The outer needle was advanced adjacent to the interpolar posterior left renal tumor under intermittent image guidance. After positioning the outer needle adjacent to the target, an inner core biopsy device was advanced into the target. A total of two core biopsies were obtained from the intended target. The biopsy samples were placed in formalin. Needle(s) utilized: Core Biopsy Needle: Tuloko-easy 18 gauge 20 cm Cryoablation was then performed for 10 minutes at temperatures below -40 degrees Celsius with imaging obtained at the 5 minutes and 10 olivares. Imaging showed appropriate formation of an ice ball around the tumor. Following an 7 minute period of passive thaw, cryoablation was repeated for an additional 10 minutes with repeated imaging at the 5 and 10 olivares demonstrating appropriate ice ball formation. Following 7 minutes of passive thaw, the Cryoprobes were removed with temperatures measuring greater than 20 degrees Celsius. One station cautery was one. Final CT imaging demonstrated complete encasement of the organ tumor by the ice ball. No complications were seen. Throughout the procedure the patient's vital signs remained stable. ESTIMATED BLOOD LOSS: Minimal CONDITION: Stable condition DISCHARGED TO: recovery and subsequently to patient care division. FINDINGS: Initial CT images redemonstrate the 1.4 cm exophytic right renal mass. Procedural images demonstrate appropriate positioning of the ablation probes within the cephalad and caudal aspects of the mass. The biopsy introducer is appropriately positioned at the margin of the mass. The images obtained during ablation show appropriate encasement of the mass by the ice ball. Final images demonstrate the entirety of the mass to be encased by the ice ball with no evidence of immediate complications. IMPRESSION: Successful percutaneous cryoablation of right renal mass. PLAN: The patient will follow up with renal MRI in 3 months to assess tumor response to therapy. Dictated by: Jono Padilla M.D. The radiology attending physician has personally reviewed this study, and had reviewed and/or edited this written report and agrees with it. Electronically signed by: Sumeet Moralez M.D. Sumeet Moralez MD IM IR PROCEDURES Final R esult * Surgical pathology (01/27/2025 10:04 AM CDT) Tissue (Kidney biopsy, tumor/mass) 01/27/2025 10:04 AM CDT Comment:Right kidney mass bi opsy Narrative PATHOLOGY [facility] - 01/28/2025 9:43 AM CDT EPIC results best viewed via link to PDF [facility] [place] [address] Note to Patients: This report may contain a detailed description of human tissue sent by a health care provider to the laboratory for pathologic evaluation. The content of this report is essential for diagnosis and may provide important critical findings. This information may be unfamiliar to patients to review without a medical professional present. It is advised that the patient review this report in the presence of a health care provider who can answer questions and explain the details. SURGICAL PATHOLOGY REPORT FINAL Patient Name: JUAN DANIEL CASTREJON Gender: M : 1960 (Age: 64) Address: [address] [place], [place] [id number] Hospital #: [id number] Taken:01/27/2025 Received:01/27/2025 Reported: 01/28/2025 Patient Type: [facility] OP In Bed Service: UNKNOWN Location: [facility] 3500 Physician(s): Tamia Knowles M.D. Diagnosis: A. Kidney, right, mass, biopsy - Clear cell renal cell carcinoma, WHO/ISUP grade 2 of 4 gugo/01/28/2025 08:51 By this signature, I attest that the above diagnosis is based upon my personal examination of the slides(and/or other material indicated in the diagnosis). Finn Becerra M.D., PH.D. Report Electronically Reviewed and Signed Out By Finn Becerra M.D., PH.D. 01/28/2025 09:43:26 Joe Godinez M.D. History: The patient is a 64-year-old man presenting with renal mass. Operative procedure: Right kidney mass biopsy. Specimen(s) Received: A: Right kidney mass bx Gross Description: Received in formalin, labeled with the patient s identifiers and right kidney mass biopsy and consists of two baeza-red core(s) of soft tissue measuring 1.5-1.6 cm in length x 0.1 cm in diameter. Labeled A1 to A2. Jar 0. elsw/01/27/2025 12:13 PA(s): Astrid Altamirano By this signature, I attest that the above diagnosis is based upon my personal examination of the slides(and/or other material). Addenda/Procedures The performance characteristics of some immunohistochemical stains, fluorescence in-situ hybridization tests and immunophenotyping by flow cytometry cited in this report (if any) were determined by the Surgical Pathology and Flow Cytometry Departments at [facility] as part of an ongoing software quality assurance specialist program and in compliance with federally mandated regulations drawn from the Clinical Laboratory Improvement Act of 1988 (CLIA '88). Some of these tests rely on the use of analyte specific reagents and are subject to specific labeling requirements by the US Food and Drug Administration. Such diagnostic tests may only be performed in a facility that is certified by the Department of Health and Human Services as a high complexity laboratory under CLIA '88. The FDA has determined that such clearance or approval is not necessary. This test is used for clinical purposes. It should not be regarded as investigational or for research. Nevertheless, federal rules concerning the medical use of analyte specific reagents require that the following disclaimer be attached to the report: This test was developed and its performance characteristics determined by the Surgical Pathology and Flow Cytometry Departments of [facility]. It has not been cleared or approved by the U. S. Food and Drug Administration. IMAGES AND SCANNED DOCUMENTS, IF INCLUDED, ONLY VIEWABLE IN PDF VERSION OF REPORT us Rodney Nova MD LAB PATHOLOGY ORDERABLE S Final Result PATHOLOGY [facility] 3rd Floor [place], [place] [phone] * AL AN ELECTIVE ENDOTRACHEAL AIRWAY, AL AN PROCEDURE PLACEHOLDER (01/27/2025 9:31 AM CDT) Narrative Adrian Aquino - 01/27/2025 9:31 AM CDT Adrian Aquino 01/27/2025 9:32 AM Airway Patient location: OR Urgency: elective Date/time: 01/27/2025 9:05 AM Indications for airway management: anesthesia Difficult airway: no Staff: Supervising provider: Sloane Brizuela MD PhD Placed by: Other staff: Adrian Aquino Emergent airway documentation: Risks and benefits discussed: yes Consent obtained: yes Consent given by: patient Airway prep: Preoxygenated: yes Patient position: sniffing Mask difficulty assessment: 0 - not attempted Spontaneous ventilation during airway: absent Sedation level during airway: GA Final airway details: Final airway type: endotracheal airway Tube type: ETT ETT size: 8.0 mm Cuffed: yes Technique used for successful ETT placement: video laryngoscopy Insertion site: oral Blade type: Gene Video blade type: Abraham Blade size: 4 Cormack-Lehane (video): grade I - full view of glottis Cuff volume: 6 mL Cuff inflated with: air ETT to teeth: 24 cm Placement verified by: auscultation and CO2 detection Airway secured with: prone view tape and tegaderm Number of attempts: 1 us Sloane Brizuela MD PhD ANESTHESIA ORDERABLES Final R esult * POCT glucose (01/27/2025 7:45 AM CDT) [facility] Glucose, POC 142 70 - 199 mg/dL Blood 01/27/2025 7:45 AM CDT 01/27/2025 7:45 AM CDT Result [facility] Darwin Anderson MD LAB POCT ORDERABLES - DEVICE Final Result Performing Organization Address City/[facility] Co de Phone Number [facility] Department [place] [address] * TYPE AND SCREEN 14 DAY (01/13/2025 2:03 PM CDT) [facility] Tristan, indirect Negative ABO Rh A Positive [facility] Blood 01/13/2025 2:03 PM CDT 01/13/2025 2:29 PM CDT Narrative [facility] - 01/13/2025 3:28 PM CDT Is this test being ordered in advance for a procedure?->Yes Expected date of procedure:->01/27/25 Has the patient been transfused in the past 3 months?->No Result [facility] Angelita Becerra NP LAB BLOOD BANK TEST ORD ERABLES Final Result Performing Organization Address City/[facility] Co de Phone Number [facility] Department [place] [address] * eGFR (01/13/2025 2:03 PM CDT) [facility] eGFR >90 >=60 mL/min/1. 73 m2 Comment: Interpretive Data Reference Interval Normal >/= 90 mL/min/1.73m2 Mildly decreased* 60 - 89 mL/min/1.73m2 Mildly to moderately decreased 45 - 59 mL/min/1.73m2 Moderately to severely decreased 30 - 44 mL/min/1.73m2 Severely decreased 15 - 29 mL/min/1.73m2 Kidney Failure < 15 mL/min/1.73m2 *Relative to young adult level Estimated glomerular filtration rate is determined by the 2020 CKD-EPI equation recommended by the National Kidney Foundation (A Unifying Approach to GFR Estimation: Recommendations of the NKF-ASK Task Force on Reassessing the Inclusion of Race in Diagnosing Kidney Disease, JASN 2020). The CKD-EPI equation should not be used for patients with unstable renal function and has not been validated in children and those over 70. Current interpretive data was last reviewed 2021. Blood 01/13/2025 2:03 PM CDT 01/13/2025 2:28 PM CDT us Angelita Becerra THERMODYNAMICS PROFESSOR LAB BLOOD ORDERABLES Fi nal Result [facility] Department [place] [address] * CBC without differential (01/13/2025 2:03 PM CDT) [facility] WBC 7.12 3.80 - 9.90 K/cumm Hgb 13.8 13.0 - 17.5 g/dL [facility] Hct 41.8 38.9 - 50.3 % [facility] Plt 178 150 - 400 K/cumm [facility] MPV 10.8 9.1 - 12.3 fL [facility] RBC 4.78 4.30 - 5.80 M/cumm [facility] MCV 87.4 81.3 - 96.4 fL [facility] MCH 28.9 27.1 - 33.3 pg [facility] MCHC 33.0 32.3 - 35.7 g/dL [facility] RDW CV 14.2 11.1 - 14.9 % [facility] RDW SD 45.3 35.7 - 48.1 fL [facility] NRBC abs 0.00 0.00 - 0.01 K/cumm [facility] Blood 01/13/2025 2:03 PM CDT 01/13/2025 2:28 PM CDT Angelita Becerra THERMODYNAMICS PROFESSOR LAB BLOOD ORDERABLES Fi nal Result [facility] Department [place] [address] * Basic metabolic panel (01/13/2025 2:03 PM CDT) Sodium 141 135 - 145 mmol/L Potassium, pl 4.5 3.3 - 4.9 mmol/L [facility] Chloride 109 97 - 110 mmol/L [facility] CO2 24 22 - 32 mmol/L [facility] Anion gap 8 2 - 15 mmol/L [facility] BUN 21 6 - 25 mg/dL [facility] Creatinine 0.94 0.80 - 1.30 mg/dL [facility] Glucose 147 70 - 199 mg/dL [facility] Comment: Interpretive Data Fasting glucose >/= 126 mg/dl is diagnostic for diabetes. Fasting is defined as no caloric intake for at least 8 hours. Fasting glucose between 100 mg/dl to 125 mg/dl is diagnostic of prediabetes. In a patient with classic symptoms of hyperglycemia or hyperglycemic crisis, a random glucose >/= 200 mg/dl is diagnostic for diabetes. In the absence of unequivocal hyperglycemia, results should be confirmed by repeat testing. The classification and Diagnosis of Diabetes Diabetes Care 2021; 46: S19-S40. Current interpretive data was last revised 2022. Calcium 10.1 8.5 - 10.3 mg/dL [facility] Blood 01/13/2025 2:03 PM CDT 01/13/2025 2:28 PM CDT Angelita Rosaura Dippolito THERMODYNAMICS PROFESSOR LAB BLOOD ORDERABLES Fi nal Result Performing Organization Address [facility] Co de Phone Number [facility] [place] [address] * (ABNORMAL) POCT hemoglobin A1c (01/13/2025 1:27 PM CDT) [facility] Signature Hgb A1C, POC 8.2(H) 4.0 - 5.6 % Est Average Gluc POC 189 mg/dL [facility] Comment: The ADA recommends reporting an estimated Average Glucose (eAG) with all Hemoglobin A1c results using the equation derived from a study of 507 normal and diabetic adults. Minority populations were underrepresented and children were not included. (Diabetes Care 31:3240-8871, 2008). The eAG is not equivalent to a fasting glucose. Blood 01/13/2025 1:27 PM CDT 01/13/2025 1:27 PM CDT Giancarlo CLEMENTE POINT OF CARE TEST ORDERA BLES Final Result Performing Organization Address [facility] de Phone Number [facility] [place] [address] from Last 3 Months Insurance [facility] [employer] S[employer] [id number] [place] [id number] [facility] Advance Directives For more information, please contact: [phone] Documents on File Type Date Recorded Patient Fiber Worker Expl anation ADVANCE DIRECTIVE 01/27/2025 7:48 AM Power of Media Strategist-Medical * Full Code (Latest Code Status on File) Date Activated Date Inactivated Comments 01/27/2025 7:15 AM 01/28/2025 1:57 PM Care Teams Naturopath Relationship Specialty Start Date End Date Rodney Nova MD [address] [facility] [address] [place] [address] PCP - General Family Medicine 10/26/21
--- OUTSIDE RECORDS SUMMARY | 2025-02-10 11:51 | XMS_ITS | Clinical Summary ---
Author Organization [facility] Address [address] [address] Care Team Providers Care Visitor Services Technician Name Role Phone Rodney Nova MD Primary Care Provider Source Comments [facility],non-owned Affiliates and Associated Physician Practices is amultiple site organization consisting of ambulatory clinics and hospital sitesin [place], [place], [place] and [place]. This disclosure is being madepursuant to the Care Everywhere program and may not contain all information available regarding this patient. Last updated [email or web address] [facility] Allergies No known active allergies Medications * Be aware that medications may not be up to date on this document. Alwaysverify current medications with the patient. metFORMIN CR 24hr modified (Glumetza) 1000 MG [...] and heating? Not hard at all 01/20/2023 [facility] - Occupational Stress [...] place to sleep or slept in a custodial (including now)? No 01/20/2023 Sex and Gender Information Value Date Recorded Sex Assigned at Not on file Legal Sex Male 9:46 AM [facility] PATIENTS Gender Identity Not on file Sexual Orientation [...] 12:57 PM CDT Height 185.4 cm (6' 1) 01/19/2023 12:57 PM CDT Body Mass Index [...] 60-74 years 1-dose series) 2020 COVID-19 VACCINE (1 - 2023-2 5 season) 2024 DEPRESSION SCREENING 07/08/2024 INFLUENZA VACCINE (#1) 2025 HEPATITIS C SCREENING Completed 01/19/2023 HIV SCREENING [...] faisal Non-reac tive 01/19/2023 2:33 PM CDT [facility] Comment:Hepatitis C Antibody screen indicates no [...] CDT Stanford Soria MD LAB - CHEMISTRY ORDERABLES Fi nal Result Performing Organization Address City/[facility]/ZIP Co de Phone Number [address] [id number], [employer] [phone] * HIV-1 HIV-2 ANTIBODY + HIV P24 AG PANEL (01/19/2023 1:26 PM CDT) Pathologist [facility] HIV Antigen/Antibod y 1 & 2 Non-reacti ve Non-react faisal 01/19/2023 2:33 PM CDT [facility] Comment:No Laboratory eviden ce of HIV infection. Blood BLOOD SPECIMEN / Unknown Venipuncture / Unknown 01/19/2023 1:26 PM CDT 01/19/2023 1:47 PM CDT Stanford Soria MD LAB - CHEMISTRY ORDERABLES Fi nal Result Performing Organization Address City/[facility]/ZIP Co de Phone Number [address] [id number] [phone] from Last 3 Months or Most Recently Relevant to Health Maintenance Insurance [facility] Advance Directives * Full Code (Latest Code Status on File) Date Activated Date Inactivated Comments 01/20/2023 11:56 AM 01/21/2023 4:04 PM Care Teams Visitor Services Technician Relationship Specialty Start Date End Date Rodney Nova MD [address] [facility] [facility] [address] [place] [address] PCP - General Family Medicine 06/08/21
--- NOTE | 2025-02-10 12:19 | ED_ITS ---
HPI - General Adult General Chief complaint: Extremity Problem,Nontraumatic Stated complaint: right leg swelling, pain Time Seen by Provider: 02/10/25 11:52 History of Present Illness HPI narrative: This 64-year-old male presenting ED with right leg pain. The patient says is 3 days he has been having pain on the right inner thigh and behind his knee. He has no history of DVT or PE. He had a kidney biopsy performed on January 27. He has not been reformed with resultant. No chest pain or difficulty breathing. Related Data Allergies Allergy/AdvReac Type Severity Reaction Status Date / Time No Known Allergies Allergy Verified 02/10/25 11:18 [facility] Past Medical History Medical History Inadequately controlled diabetes mellitus SBO (small bowel obstruction) Obesity Left foot pain Personal history of colonic polyps Primary generalized (osteo)arthritis Type 2 diabetes mellitus without complication, without long-term current use of insulin Mixed hyperlipidemia Slow transit constipation Surgical History Surgical History S/P right rotator cuff repair History of bowel resection reports h/o multiple abd surgeries Status post hernia repair w/ resulting bowel perforation and sepsis Family History Family History Mother Heart disease Diabetes mellitus Other Family history of arthritis Social History Social History Smoking packs per day: 1 Smoking cigarettes per day: 20.0 Years smoked: 5 Smoking pack-years: 5.00 Smoking status: Former smoker Tobacco type: cigarettes Second hand tobacco smoke exposure: No Smoking end date: 07/08/89 Alcohol intake: current Alcohol use details: rare Substance use: never Substance use type: does not use Living arrangements: with family Occupation/Education: occupation Gender identity (if verbalized by the patient): Male Sexual Orientation (if Verbalized by the Patient): Straight or Heterosexual Exam Narrative: APPEARANCE: No apparent distress. Head: atraumatic. EYES: EOMI, NOSE: Atraumatic NECK: Trachea midline RESPIRATORY: No increased rate of breathing CARDIOVASCULAR: RRR, no peripheral edema, rope like tender mass in the right anterior thigh ABDOMINAL: Non-distended MUSCULOSKELETAl: No obvious deformities NEURO: Alert. Moving 4/4 extremities SKIN:: Warm, dry. Normal color PSYCHIATRIC: Normal affect Course Vital Signs Vital signs: Vital Signs Temperature 97.4 F L 02/10/25 11:14 Pulse Rate 64 02/10/25 11:14 Respiratory Rate 18 02/10/25 11:14 Blood Pressure 121/65 02/10/25 11:14 Pulse Oximetry 100 02/10/25 11:14 Oxygen Delivery Room Air 02/10/25 11:14 Temperature 97.4 F L 02/10/25 11:14 Pulse Rate 64 02/10/25 11:14 Respiratory Rate 18 02/10/25 11:14 Blood Pressure 121/65 02/10/25 11:14 Pulse Oximetry 100 02/10/25 11:14 Oxygen Delivery Room Air 02/10/25 11:14 Medical Decision Making MDM Narrative Medical decision making narrative: -Course: 64-year-old male presenting with right thigh pain. Venous ultrasound shows superficial thrombosis of the saphenous vein bilaterally. Review of his previous pathology shows that he his kidney mass was renal cell carcinoma. This was discussed with his primary care physician (Dr. Nova) and given his superficial clots and malignancy we will start him on anticoagulation. Patient was educated on bleeding precautions. Discharged primary care follow-up. -DDX includes but is not limited to: DVT, SVT Vital Signs Vital Signs: Vital Signs Temperature 97.4 F L 02/10/25 11:14 Pulse Rate 64 02/10/25 11:14 Respiratory Rate 18 02/10/25 11:14 Blood Pressure 121/65 02/10/25 11:14 Pulse Oximetry 100 02/10/25 11:14 Oxygen Delivery Room Air 02/10/25 11:14 Temperature 97.4 F L 02/10/25 11:14 Pulse Rate 64 02/10/25 11:14 Respiratory Rate 18 02/10/25 11:14 Blood Pressure 121/65 02/10/25 11:14 Pulse Oximetry 100 02/10/25 11:14 Oxygen Delivery Room Air 02/10/25 11:14 Discharge Plan Discharge Clinical Impression: Superficial vein thrombosis, Renal cell carcinoma Patient Disposition: Home Condition: Stable Instructions: Antibiotic Form, Apixaban (By mouth), Superficial Thrombophlebitis (ED) Additional Instructions: You were seen in the emergency department for a superficial vein thrombosis. Please take the Eliquis as instructed. Please follow-up with Dr. Nova in 3-5 days for further management. Patient Language: Tamazight Prescriptions: New Eliquis DVT-PE Treat 30D Start 5 mg (74 tabs) tablets,dose pack See Rx Instructions .ROUTE .COMPLEX Qty: 74 0RF Rx Instructions: orally per package directions No Action cholecalciferol (vitamin D3) 125 mcg (5,000 unit) capsule See Rx Instructions .ROUTE .COMPLEX Qty: 90 2RF Dose Instruction: TAKE 1 CAPSULE DAILY Rx Instructions: TAKE 1 CAPSULE DAILY ibuprofen 800 mg tablet 800 mg PO BID PRN (Reason: pain) Qty: 180 2RF valsartan 80 mg tablet 120 mg PO DAILY Qty: 135 1RF rosuvastatin 20 mg tablet See Rx Instructions .ROUTE .COMPLEX Qty: 90 2RF Dose Instruction: TAKE 1 TABLET DAILY Rx Instructions: TAKE 1 TABLET DAILY metformin 500 mg tablet extended release 24 hr 2,000 mg PO DAILY Qty: 360 3RF Follow-up/Referrals: Giancarlo Candelario PA-C [Primary Care Provider] -
--- OUTSIDE RECORDS SUMMARY | 2025-02-10 12:26 | XMS_ITS | Clinical Summary ---
Author Organization [facility] Address [address] [place] [address] Care Team Providers Care Lead Vulcanizing Operator Name Role Phone Rodney Nova MD [...] Type Department Care Team Description 01/29/2025 Telephone [facility] - Interventional Radiology [address] [place] [address] Lana Flores RN 01/27/2025 12:16 PM CDT - 01/28/2025 9:52 AM CDT Hospital Encounter [address] [phone] Darwin Anderson MD Moller, MD Kirt Fermin, MD Miles Mittal, Adrian Brizuela, MD Sloane PhD Yves, Cliff Sanon, CARD GRINDER HELPER Renal mass Discharge Disposition: Discharge to home or self care 01/27/2025 8:42 AM CDT Anesthesia Event Radiology 1 [place] [address] Sloane Brizuela MD PhD Angelita Becerra NP 01/27/2025 Telephone Radiology 1 [place] [address] Molly Calabrese PA 01/22/2025 Telephone Radiology 1 [place] [address] Brendan Sweeney, [place] 01/13/2025 1:00 PM CDT Pre-Admission Testing [facility] ([facility]) [address] [place] [id number] Preop examination (Primary Dx) 2024 Telephone Radiology 1 [place] [address] Larissa Bearden RN 12/07/2024 11:00 AM CDT Office Visit [facility] Radiology, Interventional Radiology [address] [facility] [address] [phone] Sumeet Moralez MD Renal mass, right (Primary Dx); Pre-diabetes 12/07/2024 Telephone [facility] Radiology, Interventional Radiology [address] [facility] [address] [phone] Larissa Da Silva, CAL 11/26/2024 Telephone [facility] - Interventional Radiology [address] [place] [phone] Lana Flores RN 11/19/2024 Orders Only [facility] - Interventional Radiology [address] [place] [phone] Lana Flores RN Renal mass (Primary [...] on file 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 Gender Identity Male 01/21/2023 7:32 PM CDT [...] 01/27/2025 10 :04 AM CDT Renal mass DC AN PROCEDURE PLACEHOLDER Routine 01/27/2025 9:31 AM CDT DC AN ELECTIVE ENDOTRACHEAL AIRWAY Routine 01/27/2025 9:31 [...] DEV ICE Final Result Performing Organization Address [facility] Co de Phone Number [facility] Department [place] [address] * (ABNORMAL) POCT glucose (01/27/2025 7:52 PM CDT) Glucose, POC 274(H) 70 - 199 mg/dL Blood 01/27/2025 7:52 PM CDT 01/27/2025 7:52 PM CDT Darwin Anderson MD LAB POCT ORDERABLES - DEVICE Final Result Performing Organization Address City/[facility]/ZIP Co de Phone Number [facility] Department [place] [address] * (ABNORMAL) POCT glucose (01/27/2025 6:06 PM CDT) Glucose, POC 230(H) 70 - 199 mg/dL Blood 01/27/2025 6:06 PM CDT 01/27/2025 6:06 PM CDT Darwin Anderson MD LAB POCT ORDERABLES - DEVICE Final Result Performing Organization Address [facility] Co de Phone Number [facility] Department [place] [address] * eGFR (01/27/2025 3:53 PM CDT) [facility] eGFR 84 >=60 mL/min/1. 73 m2 Comment: [...] ORDERA BLES Final Result Performing Organization Address [facility] Co de Phone Number [facility] Department [place] [address] * (ABNORMAL) CBC without differential (01/27/2025 3:53 PM CDT) [facility] WBC 8.26 3.80 - 9.90 K/cumm Hgb 14.1 13.0 - 17.5 g/dL [facility] Hct 42.7 38.9 - 50.3 % [facility] Plt 149(L) 150 - 400 K/cumm [facility] MPV 10.6 9.1 - 12.3 fL [facility] RBC 4.84 4.30 - 5.80 M/cumm [facility] MCV 88.2 81.3 - 96.4 fL [facility] MCH 29.1 27.1 - 33.3 pg [facility] MCHC 33.0 32.3 - 35.7 g/dL [facility] RDW CV 14.6 11.1 - 14.9 % [facility] RDW SD 46.5 35.7 - 48.1 fL [facility] NRBC abs 0.00 0.00 - 0.01 K/cumm [facility] Blood 01/27/2025 3:53 PM CDT 01/27/2025 4:07 PM CDT Dylon Rizo MD LAB BLOOD ORDERA BLES Final Result [facility] Department [place] [address] * (ABNORMAL) Basic metabolic panel (01/27/2025 3:53 PM CDT) Sodium 142 135 - 145 mmol/L Potassium, pl 4.7 3.3 - 4.9 mmol/L [facility] Chloride 106 97 - 110 mmol/L [facility] CO2 24 22 - 32 mmol/L [facility] Anion gap 12 2 - 15 mmol/L [facility] BUN 20 6 - 25 mg/dL [facility] Creatinine 1.00 0.80 - 1.30 mg/dL [facility] Glucose 239(H) 70 - 199 mg/dL [facility] Comment: Interpretive Data Fasting glucose >/= 126 [...] 2022. Calcium 9.8 8.5 - 10.3 mg/dL [facility] Blood 01/27/2025 3:53 PM CDT 01/27/2025 4:07 PM CDT Dylon Rizo MD LAB BLOOD ORDERA BLES Final Result Performing Organization Address City/[facility] Co de Phone Number [facility] Department [place] [address] * POCT glucose (01/27/2025 11:04 AM CDT) Glucose, POC 139 70 - 199 mg/dL Blood 01/27/2025 11:0 4 AM CDT 01/27/2025 11:04 AM CDT Darwin Anderson MD LAB POCT ORDERABLES - DEVICE Final Result Performing Organization Address [facility] de Phone Number [facility] [place] [address] * IR Cryoablation Renal Right (01/27/2025 11:03 [...] was obtained. Prior to beginning the procedure, [place] Protocol was performed to confirm the patient's [...] in formalin. Needle(s) utilized: Core Biopsy Needle: Combined Effort-easy 18 gauge 20 cm Cryoablation was then [...] was obtained. Prior to beginning the procedure, [place] Protocol was performed to confirm the patient's [...] in formalin. Needle(s) utilized: Core Biopsy Needle: Combined Effort-easy 18 gauge 20 cm Cryoablation was then [...] Comment:Right kidney mass bi opsy Narrative PATHOLOGY [facility] - 01/28/2025 9:43 AM CDT EPIC results best viewed via link to PDF [facility] Mayra Shaver Laboratory of Surgical Pathology [facility] [place] [address] Note to Patients: This report may contain [...] Gender: M : 1960 (Age: 64) Address: [address] [place], [place] [phone] Hospital #: [id number] Taken:01/27/2025 Received:01/27/2025 Reported: 01/28/2025 Patient Type: [facility] OP In Bed Service: UNKNOWN Location: [facility] 3500 Physician(s): Tamia Knowles M.D. Diagnosis: A. [...] Surgical Pathology and Flow Cytometry Departments at as part of an ongoing chief vendor quality program and in compliance with federally mandated [...] Surgical Pathology and Flow Cytometry Departments of . It has not been cleared or approved by the U. S. Food and Drug Administration. IMAGES AND SCANNED DOCUMENTS, IF INCLUDED, ONLY VIEWABLE IN PDF VERSION OF REPORT us Rodney Nova MD LAB PATHOLOGY ORDERABLE S Final Result PATHOLOGY [facility] 3rd Floor [place], [place] [phone] * DC AN ELECTIVE ENDOTRACHEAL AIRWAY, DC AN PROCEDURE PLACEHOLDER (01/27/2025 9:31 AM CDT) [...] * POCT glucose (01/27/2025 7:45 AM CDT) [facility] Glucose, POC 142 70 - 199 mg/dL Blood 01/27/2025 7:45 AM CDT 01/27/2025 7:45 AM CDT Result [facility] Darwin Anderson MD LAB POCT ORDERABLES - DEVICE Final Result Performing Organization Address City/[facility] Co de Phone Number [facility] Department [place] [address] * TYPE AND SCREEN 14 DAY (01/13/2025 2:03 PM CDT) [facility] Tristan, indirect Negative ABO Rh A Positive [facility] Blood 01/13/2025 2:03 PM CDT 01/13/2025 2:29 PM CDT Narrative [facility] - 01/13/2025 3:28 PM CDT Is this test being ordered in advance for a procedure?->Yes Expected date of procedure:->01/27/25 Has the patient been transfused in the past 3 months?->No Result [facility] Angelita Becerra NP LAB BLOOD BANK TEST ORD ERABLES Final Result Performing Organization Address City/[facility] Co de Phone Number [facility] Department [place] [address] * eGFR (01/13/2025 2:03 PM CDT) [facility] eGFR >90 >=60 mL/min/1. 73 m2 Comment: [...] 01/13/2025 2:28 PM CDT us Angelita Becerra HARP REPAIRER LAB BLOOD ORDERABLES Fi nal Result [facility] Department [place] [address] * CBC without differential (01/13/2025 2:03 PM CDT) [facility] WBC 7.12 3.80 - 9.90 K/cumm Hgb 13.8 13.0 - 17.5 g/dL [facility] Hct 41.8 38.9 - 50.3 % [facility] Plt 178 150 - 400 K/cumm [facility] MPV 10.8 9.1 - 12.3 fL [facility] RBC 4.78 4.30 - 5.80 M/cumm [facility] MCV 87.4 81.3 - 96.4 fL [facility] MCH 28.9 27.1 - 33.3 pg [facility] MCHC 33.0 32.3 - 35.7 g/dL [facility] RDW CV 14.2 11.1 - 14.9 % [facility] RDW SD 45.3 35.7 - 48.1 fL [facility] NRBC abs 0.00 0.00 - 0.01 K/cumm [facility] Blood 01/13/2025 2:03 PM CDT 01/13/2025 2:28 PM CDT Angelita Becerra HARP REPAIRER LAB BLOOD ORDERABLES Fi nal Result [facility] Department [place] [address] * Basic metabolic panel (01/13/2025 2:03 PM CDT) Sodium 141 135 - 145 mmol/L Potassium, pl 4.5 3.3 - 4.9 mmol/L [facility] Chloride 109 97 - 110 mmol/L [facility] CO2 24 22 - 32 mmol/L [facility] Anion gap 8 2 - 15 mmol/L [facility] BUN 21 6 - 25 mg/dL [facility] Creatinine 0.94 0.80 - 1.30 mg/dL [facility] Glucose 147 70 - 199 mg/dL [facility] Comment: Interpretive Data Fasting glucose >/= 126 [...] 2022. Calcium 10.1 8.5 - 10.3 mg/dL [facility] Blood 01/13/2025 2:03 PM CDT 01/13/2025 2:28 PM CDT Angelita Rosaura Dippolito HARP REPAIRER LAB BLOOD ORDERABLES Fi nal Result Performing Organization Address [facility] Co de Phone Number [facility] [place] [address] * (ABNORMAL) POCT hemoglobin A1c (01/13/2025 1:27 PM CDT) [facility] Signature Hgb A1C, POC 8.2(H) 4.0 - 5.6 % Est Average Gluc POC 189 mg/dL [facility] Comment: The ADA recommends reporting an estimated Average Glucose (eAG) with all Hemoglobin A1c results using the equation derived from a study of 507 normal and diabetic adults. Minority populations were underrepresented and children were not included. (Diabetes Care 31:7841-1631, 2008). The eAG is not equivalent to a fasting glucose. Blood 01/13/2025 1:27 PM CDT 01/13/2025 1:27 PM CDT Giancarlo CLEMENTE POINT OF CARE TEST ORDERA BLES Final Result Performing Organization Address [facility] de Phone Number [facility] [place] [address] from Last 3 Months Insurance [facility] AETNA SIGNATURE [place] [id number] [place] [id number] [facility] Advance Directives For more information, please contact: [phone] Documents on File Type Date Recorded Patient Special Education Teacher Expl anation ADVANCE DIRECTIVE 01/27/2025 7:48 AM Power of Material Carrier-Medical * Full Code (Latest Code Status on File) Date Activated Date Inactivated Comments 01/27/2025 7:15 AM 01/28/2025 1:57 PM Care Teams Lead Vulcanizing Operator Relationship Specialty Start Date End Date Rodney Nova MD [address] [facility] [address] [place] [address] PCP - General Family Medicine 10/26/21
--- OUTSIDE RECORDS SUMMARY | 2025-02-10 12:26 | XMS_ITS | Clinical Summary ---
Author Organization [facility] [employer] Address [address] [place] [address] Care Team Providers Care Balance Bridge Inspector Name Role Phone Rodney Nova MD Primary Care Provider [phone] Source Comments [facility] [employer],non-owned Affiliates and Associated Physician Practices is amultiple site organization consisting of ambulatory clinics and hospital sitesin [place], [place], [place] and [place]. This disclosure is being madepursuant to the Care Everywhere program and may not contain all information available regarding this patient. Last updated 18.[employer] Allergies No known active allergies Medications * [...] and heating? Not hard at all 01/20/2023 [facility] of Occupat ional Health - Occupational Stress [...] place to sleep or slept in a detention (including now)? 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 Blood BLOOD SPECIMEN / Unknown Venipuncture / Unknown 01/19/2023 1:26 PM CDT 01/19/2023 1:47 PM CDT Stanford Soria MD LAB - CHEMISTRY ORDERABLES Fi nal Result Performing Organization Address City/[facility]/ZIP Co de Phone Number [address] [address] [phone] from Last 3 Months or Most Recently Relevant to Health Maintenance Insurance [facility] Advance Directives * Full Code (Latest Code Status on File) Date Activated Date Inactivated Comments 01/20/2023 11:56 AM 01/21/2023 4:04 PM Care Teams Balance Bridge Inspector Relationship Specialty Start Date End Date Rodney Nova MD [address] [facility] [address] [place] [address] PCP - General Family Medicine 06/08/21
[2025-02-10 14:02] LABS: Hematocrit 42.2 % (42.0-52.0); Hemoglobin 13.7 g/dL (14.0-18.0); Immature Granulocyte Percent A 0.4 % (0-0.5); Lymphocytes Absolute Auto 1.65 K/mm3 (0.9-3.2); Mean Corpuscular HGB Conc 32.5 g/dl (32-36); Mean Corpuscular Hemoglobin 29.5 pg (26-34); Mean Corpuscular Volume 90.9 fl (80-100); Nucleated Red Blood Cells Absolute Auto 0.000 K/mm3 (0.0-0.012); Nucleated Red Blood Cells Perc 0.0 % (0.0-0.2); Platelet Count Result 146 k/mm3 (150-375); Red Blood Count 4.64 M/mm3 (4.6-6.20); White Blood Count 7.3 K/mm3 (4.5-10.0)
[2025-02-10 14:13] LABS: Alanine Aminotransferase 18 U/L (6-50); Albumin Level 4.3 g/dL (3.5-5.1); Alkaline Phosphatase 64 U/L (38-126); Anion Gap 10 mmol/L (4-12); Aspartate Amino Transferase 21 U/L (17-59); Bilirubin,Total 0.6 mg/dL (0.2-1.3); Blood Urea Nitrogen 25 mg/dL (9-20); Calcium 9.8 mg/dL (8.4-10.2); Carbon Dioxide 21 mmol/L (22-30); Chloride 106 mmol/L (98-107); Estimated CRCL calculation 97 ml/min; Estimated Glomerular Filt Rate > 60; Glucose 149 mg/dL (65-110); INR 1.0; Potassium 4.8 mmol/L (3.4-5.0); Prothrombin Time 13.2 Seconds (11.1-14.7); Sodium 137 mmol/L (137-145); Total Protein 7.2 g/dL (6.3-8.2)
[2025-02-10 14:14] LABS: Partial Thromboplastin Time 25.2 Seconds (22.3-36.8)
[2025-02-10] MEDS: APIXABAN 5 MG TABLET 10 MG PO (14:38)
== END 2025-02-10 14:42 | disposition home or self-care (01) ==
PROVIDERS: Emergency Provider Emergency Medicine; PCP Physician Assistant
DX: I82.813 Embolism and thrombosis of superficial veins of lower extremities, bilateral (principal); C64.9 Malignant neoplasm of unspecified kidney, except renal pelvis; E11.9 Type 2 diabetes mellitus without complications; E78.2 Mixed hyperlipidemia; Z87.891 Personal history of nicotine dependence; Z86.0100 Personal history of colon polyps, unspecified; Z90.49 Acquired absence of other specified parts of digestive tract; Z79.84 Long term (current) use of oral hypoglycemic drugs
CPT/HCPCS: 36415; 80053; 85025; 85610; 85730; 93970; 99284; A9270

== ENCOUNTER 2025-03-05 09:34 | Outpatient (CLI) | payer OTHER, SELFPAY ==
--- OUTSIDE RECORDS SUMMARY | 2025-03-05 09:38 | XMS_ITS | Clinical Summary ---
Author Organization [facility] Address [address] [facility] [place] [address] Care Team Providers Care Supervisor Counseling And Guidance Name Role Phone Rodney Nova MD Primary Care Provider [phone] [facility],non-owned Affiliates and Associated Physician Practices is amultiple site organization consisting of ambulatory clinics and hospital sitesin [place], [place], [place] and [place]. This disclosure is being madepursuant to the Care Everywhere program and may not contain all information available regarding this patient. Last updated 18.[facility] Allergies No known active allergies Medications * [...] and heating? Not hard at all 01/20/2023 [facility] of Occupat ional Health - Occupational [...] place to sleep or slept in a fdc (including now)? 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 Blood BLOOD SPECIMEN / Unknown Venipuncture / Unknown 01/19/2023 1:26 PM CDT 01/19/2023 1:47 PM CDT Stanford Soria MD LAB - CHEMISTRY ORDERABLES Fi nal Result Performing Organization Address City/[facility]/ZIP Co de Phone Number [address] [phone] [phone] from Last 3 Months or Most Recently Relevant to Health Maintenance Insurance [facility] Advance Directives * Full Code (Latest Code Status on File) Date Activated Date Inactivated Comments 01/20/2023 11:56 AM 01/21/2023 4:04 PM Care Teams Supervisor Counseling And Guidance Relationship Specialty Start Date End Date Rodney Nova MD [address] [facility] [address] [place] [address] PCP - General Family Medicine 06/08/21
--- OUTSIDE RECORDS SUMMARY | 2025-03-05 09:38 | XMS_ITS | Clinical Summary ---
Author Organization [facility] Address [address] [place] [address] Care Team Providers Care Hyperbaric Tech Name Role Phone Rodney Nova MD Primary [...] as needed for constipation 10 tablet 01/29/20 Active oxyCODONE (ROXICODONE) 5 mg immediate release tabletIndications :Pain Take 1 tablet (5 mg total) by mouth 4 (four) times a day as needed for pain 10 tablet 01/29/20 25 Active Active Problems Problem Noted Date Diagnosed [...] Type Department Care Team Description 01/29/2025 Telephone [facility] - Interventional Radiology [address] [place] [address] Lana Flores RN 01/27/2025 12:16 PM CDT - 01/28/2025 9:52 AM CDT Hospital Encounter [address] [address] Darwin Anderson MD Moller, MD Kirt Fermin, MD Miles Mittal, Sloane Hernandez MD PhD Cliff Marinelli CRNA Renal mass Discharge Disposition: Discharge to home or self care 01/27/2025 8:42 AM CDT Anesthesia Event [facility] Radiology [address] [place] [address] Sloane Brizuela MD PhD Angelita Becerra NP 01/27/2025 Telephone Radiology [address] [place] [address] Molly Calabrese PA 01/22/2025 Telephone [facility] Radiology [address] [place] [address] Brendan Sweeney, [place] 01/13/2025 1:00 PM CDT Pre-Admission Testing [facility] Center for Preoperative Assessment and Planning [facility] ([facility]) [address] [place] [address] Preop examination (Primary Dx) 2024 Telephone [facility] Radiology [address] [place] [address] Larissa Bearden, [place] 12/07/2024 11:00 AM CDT Office Visit [facility] Medicine Radiology, Interventional Radiology [address] [facility] [address] [phone] Sumeet Moralez MD Renal mass, right (Primary Dx); Pre-diabetes 12/07/2024 Telephone [facility] Medicine Radiology, Interventional Radiology [address] [facility] [address] [phone] Larissa Da Silva, CAL from Last 3 Months Surgical History Surgery Date Site/Laterality Comments ABDOMINAL HERNIA REPAIR x3 CRYOABLATION RENAL RIGHT 01/27/2025 Right Medical History Medical History Date Comments Hypertension Type 2 diabetes mellitus Sleep apnea Family History Medical History Relation Name Comments Anesthesia problems Neg Hx Social History Tobacco Use Types Packs/Day Years Used Date Smoking Tobacco: Former Cigarettes 1 4 1 978 - 1982 Passive Smoke Exposure: Past Tobacco Cessation:Counseling Given: [...] on file 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 Gender Identity Male 01/21/2023 7:32 [...] A1C 07/16/2025 01/13/2025, 01/21/2023 eGFR 01/27/2026 01/27/2025, 07/03/2025, 03/05/2017 DTaP/Tdap/Td Vaccine (2 - Td or [...] 01/27/2025 10 :04 AM CDT Renal mass OK AN PROCEDURE PLACEHOLDER Routine 01/27/2025 9:31 AM CDT [place] AN ELECTIVE ENDOTRACHEAL AIRWAY Routine 01/27/2025 9:31 [...] 7:47 AM CDT 01/28/2025 7:47 AM CDT us Judy Amato MD LAB POCT ORDERABLES - DEV ICE Final Result [facility] [place] [address] * (ABNORMAL) POCT glucose (01/27/2025 7:52 PM CDT) Glucose, POC 274(H) 70 - 199 mg/dL Blood 01/27/2025 7:52 PM CDT 01/27/2025 7:52 PM CDT us Darwin Anderson MD LAB POCT ORDERABLES - DEVICE Final Result [facility] [place] [address] * (ABNORMAL) POCT glucose (01/27/2025 6:06 PM CDT) Glucose, POC 230(H) 70 - 199 mg/dL Blood 01/27/2025 6:06 PM CDT 01/27/2025 6:06 PM CDT Darwin Anderson MD LAB POCT ORDERABLES - DEVICE Final Result Performing Organization Address [facility] Co de Phone Number [facility] Department [place] [employer] [place] [place] [address] * eGFR (01/27/2025 3:53 PM CDT) [facility] eGFR 84 >=60 mL/min/1. 73 m2 [...] 3:53 PM CDT 01/27/2025 4:07 PM CDT us Dylon Rizo MD LAB BLOOD ORDERA BLES Final Result Performing Organization Address City/[facility]/ZIP Co de Phone Number [facility] [place] [address] * (ABNORMAL) CBC without differential (01/27/2025 3:53 PM CDT) Pathologist [facility] WBC 8.26 3.80 - 9.90 K/cumm Hgb 14.1 13.0 - 17.5 g/dL [facility] Hct 42.7 38.9 - 50.3 % [facility] Plt 149(L) 150 - 400 K/cumm [facility] MPV 10.6 9.1 - 12.3 fL [facility] RBC 4.84 4.30 - 5.80 M/cumm [facility] MCV 88.2 81.3 - 96.4 fL [facility] MCH 29.1 27.1 - 33.3 pg [facility] MCHC 33.0 32.3 - 35.7 g/dL [facility] RDW CV 14.6 11.1 - 14.9 % [facility] RDW SD 46.5 35.7 - 48.1 fL [facility] NRBC abs 0.00 0.00 - 0.01 K/cumm [facility] Blood 01/27/2025 3:53 PM CDT 01/27/2025 4:07 PM CDT Dylon Rizo MD LAB BLOOD ORDERA BLES Final Result [facility] [place] [address] * (ABNORMAL) Basic metabolic panel (01/27/2025 3:53 PM CDT) [facility] Sodium 142 135 - 145 mmol/L Potassium, pl 4.7 3.3 - 4.9 mmol/L [facility] Chloride 106 97 - 110 mmol/L [facility] CO2 24 22 - 32 mmol/L [facility] Anion gap 12 2 - 15 mmol/L [facility] BUN 20 6 - 25 mg/dL [facility] Creatinine 1.00 0.80 - 1.30 mg/dL [facility] Glucose 239(H) 70 - 199 mg/dL [facility] Comment: Interpretive Data Fasting glucose [...] 2022. Calcium 9.8 8.5 - 10.3 mg/dL [facility] Blood 01/27/2025 3:53 PM CDT 01/27/2025 4:07 PM CDT us Dylon Rizo MD LAB BLOOD ORDERA BLES Final Result Performing Organization Address City/[facility]/ZIP Co de Phone Number [facility] [place] [address] * POCT glucose (01/27/2025 11:04 AM CDT) Glucose, POC 139 70 - 199 mg/dL Blood 01/27/2025 11:0 4 AM CDT 01/27/2025 11:04 AM CDT us Darwin Anderson MD LAB POCT ORDERABLES - DEVICE Final Result Performing Organization Address City/[facility]/ZIP Co de Phone Number [facility] [place] [address] * IR Cryoablation Renal Right (01/27/2025 11:03 [...] was obtained. Prior to beginning the procedure, [place] Protocol was performed to confirm the patient's [...] in formalin. Needle(s) utilized: Core Biopsy Needle: Mirakl-easy 18 gauge 20 cm Cryoablation was then [...] was obtained. Prior to beginning the procedure, [place] Protocol was performed to confirm the patient's [...] in formalin. Needle(s) utilized: Core Biopsy Needle: Mirakl-easy 18 gauge 20 cm Cryoablation was then [...] it. Electronically signed by: Sumeet Moralez M.D. us Sumeet Moralez MD IMG IR PROCEDURES Final R esult * Surgical pathology (01/27/2025 10:04 AM CDT) Tissue (Kidney biopsy, tumor/mass) 01/27/2025 10:04 AM CDT Comment:Right kidney mass bi opsy Narrative PATHOLOGY [facility] - 01/28/2025 9:43 AM CDT EPIC results best viewed via link to PDF [facility] Mayra Shaver [facility] [place] [address] Note to Patients: This report may contain [...] Gender: M : 1960 (Age: 64) Address: [address] [place], [place] [id number] Hospital #: [id number] Taken:01/27/2025 Received:01/27/2025 Reported: 01/28/2025 Patient Type: [facility] OP In Bed Service: UNKNOWN Location: [place] [address] Physician(s): Tamia Knowles M.D. Diagnosis: A. Kidney, right, mass, biopsy - Clear cell renal cell carcinoma, WHO/ISUP grade 2 of 4 [facility] [place]/01/28/2025 08:51 By this signature, I attest that [...] Surgical Pathology and Flow Cytometry Departments at [facility] as part of an ongoing inspector quality assurance program and in compliance with federally mandated [...] Surgical Pathology and Flow Cytometry Departments of [facility]. It has not been cleared or approved by the U. S. Food and Drug Administration. IMAGES AND SCANNED DOCUMENTS, IF INCLUDED, ONLY VIEWABLE IN PDF VERSION OF REPORT us Rodney Nova MD LAB PATHOLOGY ORDERABLE S Final Result PATHOLOGY [facility] 3rd Floor [place], [place] [phone] * [place] AN ELECTIVE ENDOTRACHEAL AIRWAY, [place] AN PROCEDURE PLACEHOLDER (01/27/2025 9:31 AM CDT) [...] * POCT glucose (01/27/2025 7:45 AM CDT) Glucose, POC 142 70 - 199 mg/dL Blood 01/27/2025 7:45 AM CDT 01/27/2025 7:45 AM CDT us Darwin Anderson MD LAB POCT ORDERABLES - DEVICE Final Result Performing Organization Address [facility]/State/[facility] Co de Phone Number [facility] [place] [address] * TYPE AND SCREEN 14 DAY (01/13/2025 2:03 PM CDT) Tristan, indirect Negative ABO Rh A Positive [facility] Blood 01/13/2025 2:03 PM CDT 01/13/2025 2:29 PM CDT Narrative [facility] - 01/13/2025 3:28 PM CDT Is this test being ordered in advance for a procedure?->Yes Expected date of procedure:->01/27/25 Has the patient been transfused in the past 3 months?->No Angelita Becerra NP LAB BLOOD BANK TEST ORD ERABLES Final Result Performing Organization Address [facility] Co de Phone Number NIKKY [facility] [place] [address] * eGFR (01/13/2025 2:03 PM CDT) Pathologist [facility] eGFR >90 >=60 mL/min/1. 73 [...] CDT 01/13/2025 2:28 PM CDT Angelita Becerra ELECTRONIC COILS SUPERVISOR LAB BLOOD ORDERABLES Fi nal Result Performing Organization Address [facility] Co de Phone Number NIKKY [facility] [place] [address] * CBC without differential (01/13/2025 2:03 PM CDT) [facility] WBC 7.12 3.80 - 9.90 K/cumm Hgb 13.8 13.0 - 17.5 g/dL [facility] Hct 41.8 38.9 - 50.3 % [facility] Plt 178 150 - 400 K/cumm [facility] MPV 10.8 9.1 - 12.3 fL [facility] RBC 4.78 4.30 - 5.80 M/cumm [facility] MCV 87.4 81.3 - 96.4 fL [facility] MCH 28.9 27.1 - 33.3 pg [facility] MCHC 33.0 32.3 - 35.7 g/dL [facility] RDW CV 14.2 11.1 - 14.9 % [facility] RDW SD 45.3 35.7 - 48.1 fL [facility] NRBC abs 0.00 0.00 - 0.01 K/cumm [facility] Blood 01/13/2025 2:03 PM CDT 01/13/2025 2:28 PM CDT Angelita Becerra ELECTRONIC COILS SUPERVISOR LAB BLOOD ORDERABLES Fi nal Result [facility] [place] [address] * Basic metabolic panel (01/13/2025 2:03 PM CDT) Pathologist [facility] Sodium 141 135 - 145 mmol/L Potassium, pl 4.5 3.3 - 4.9 mmol/L [facility] Chloride 109 97 - 110 mmol/L [facility] CO2 24 22 - 32 mmol/L [facility] Anion gap 8 2 - 15 mmol/L [facility] BUN 21 6 - 25 mg/dL [facility] Creatinine 0.94 0.80 - 1.30 mg/dL [facility] Glucose 147 70 - 199 mg/dL [facility] Comment: Interpretive Data Fasting glucose [...] 2022. Calcium 10.1 8.5 - 10.3 mg/dL [facility] Blood 01/13/2025 2:03 PM CDT 01/13/2025 2:28 PM CDT Result [facility] Angelita Becerra ELECTRONIC COILS SUPERVISOR LAB BLOOD ORDERABLES Fi nal Result Performing Organization Address [facility] [place] [address] * (ABNORMAL) POCT hemoglobin A1c (01/13/2025 1:27 PM CDT) Hgb A1C, POC 8.2(H) 4.0 - 5.6 % Est Average Gluc POC 189 mg/dL [facility] Comment: The ADA recommends reporting an estimated Average Glucose (eAG) with all Hemoglobin A1c results using the equation derived from a study of 507 normal and diabetic adults. Minority populations were underrepresented and children were not included. (Diabetes Care 31:2613-6108, 2008). The eAG is not equivalent to a fasting glucose. Blood 01/13/2025 1:27 PM CDT 01/13/2025 1:27 PM CDT Giancarlo Candelario PA POINT OF CARE TEST ORDERA BLES Final Result Performing Organization Address [facility] [place] [address] from Last 3 Months Insurance [facility] AETNA SIGNATURE [place] [id number] [place] [id number] [facility] Advance Directives For more information, please contact: [phone] Documents on File Type Date Recorded Patient Floor Layer Helper Expl anation ADVANCE DIRECTIVE 01/27/2025 7:48 AM Power of Diamond Merchant-Medical * Full Code (Latest Code Status on File) Date Activated Date Inactivated Comments 01/27/2025 7:15 AM 01/28/2025 1:57 PM Care Teams Hyperbaric Tech Relationship Specialty Start Date End Date Rodney Nova MD [address] [facility] [address] [place] [address] PCP - General Family Medicine 10/26/21
--- NOTE | 2025-03-23 12:18 | P.PCNHOL_ITS ---
Holter/Event Monitor Holter/Event Monitor Date of procedure: 03/05/25 Holter/Event Procedure: 3-7 Day Holter Monitor Indications: Tachycardia Conclusion: 1. 7 days holter monitor on 03/05/25. 2. Predominant rhythm is sinus rhythm. HR range 45-169 bpm; average HR 71 bpm. HR at 45 bpm was on 03/08/25 at 4:24 am. 3. There are rare premature supraventricular complexes, rare supraventricular couplets, and rare supraventricular triplets. There are 23 episodes of supraventricular tachycardia with fastest at 169 bpm and longest lasting 15 beats. 4. There are occasional premature ventricular complexes, rare ventricular c ouplets, and rare ventricular triplets, longest ventricular trigeminy was 6.8 seconds. No ventricular tachycardia. 5. No significant pauses greater than 3 seconds. 6. No symptoms available for correlation.
== END 2025-03-05 09:35 | disposition home or self-care (01) ==
LOC: ANHCARD 09:36
PROVIDERS: PCP Family Medicine; Visit Provider Physician Assistant
DX: I49.1 Atrial premature depolarization (principal); I47.10 Supraventricular tachycardia, unspecified; I49.3 Ventricular premature depolarization; R00.8 Other abnormalities of heart beat
CPT/HCPCS: 93242

== ENCOUNTER 2025-05-31 09:50 | Outpatient (CLI) | payer OTHER, SELFPAY ==
--- NOTE | ~2025-05-31 | US_ITS ---
RIGHT LOWER EXTREMITY VENOUS DUPLEX Clinical History: I82.890 - Acute embolism and thrombosis of other specifie... COMPARISON: 02/10/2025 TECHNIQUE: Grayscale, color, duplex/spectral Doppler sonography right leg FINDINGS: Right leg common femoral, femoral, popliteal, and calf veins compressible and color Doppler patent. Normal augmentation with distal compression. No internal echoes. IMPRESSION: 1. No right leg DVT. Reviewed, dictated and finalized at location R. GER MBA IMPRESSION: 1. No right leg DVT.
--- OUTSIDE RECORDS SUMMARY | 2025-05-31 11:12 | XMS_ITS | Clinical Summary ---
Author Organization [facility] Address [address] [place] [address] Care Team Providers Care Flight Engineer Instructor Name Role Phone Rodney Nova MD Primary Care Provider [phone] Source Comments [facility],non-owned Affiliates and Associated Physician Practices is amultiple site organization consisting of ambulatory clinics and hospital sitesin [place], [place], [place] and [place]. This disclosure is being madepursuant to the Care Everywhere program and may not contain all information available regarding this patient. Last updated 18.be2 [facility] Allergies No known active allergies Medications * [...] and heating? Not hard at all 01/20/2023 [facility] - Occupational Stress [...] place to sleep or slept in a fpc (including now)? 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 Gender Identity Not on file Sexual Orientation [...] 50+ (1 of 1 - PCV) 2010 Respiratory Syncytial Virus (RSV) Vaccine Pt: or over 60 yrs (1 - Risk 50-74 years 1-dose series) 2010 ZOSTER VACCINE (1 of 2) 2010 DEPRESSION SCREENING 07/08/2024 COVID-19 VACCINE (1 - 2024-2 6 season) 2025 INFLUENZA VACCINE (#1) 2025 HEPATITIS C SCREENING [...] faisal Non-reac tive 01/19/2023 2:33 PM CDT [facility] Comment:Hepatitis C Antibody screen indicates no [...] ORDERABLES Fi nal Result Performing Organization Address City/[facility]/ZIP Co de Phone Number [address] [address], [place] [phone] * HIV-1 HIV-2 ANTIBODY + HIV P24 AG PANEL (01/19/2023 1:26 PM CDT) HIV Antigen/Antibod y 1 & 2 Non-reacti ve Non-react faisal 01/19/2023 2:33 PM CDT [facility] Comment:No Laboratory eviden ce of HIV infection. Blood BLOOD SPECIMEN / Unknown Venipuncture / Unknown 01/19/2023 1:26 PM CDT 01/19/2023 1:47 PM CDT Stanford Soria MD LAB - CHEMISTRY ORDERABLES Fi nal Result Performing Organization Address City/[facility]/ZIP Co de Phone Number [address] [phone] [phone] from Last 3 Months or Most Recently Relevant to Health Maintenance Insurance [facility] Advance Directives * Full Code (Latest Code Status on File) Date Activated Date Inactivated Comments 01/20/2023 11:56 AM 01/21/2023 4:04 PM Care Teams Flight Engineer Instructor Relationship Specialty Start Date End Date Rodney Nova MD [address] [facility] [address] [place] [address] PCP - General Family Medicine 06/08/21
--- OUTSIDE RECORDS SUMMARY | 2025-05-31 11:12 | XMS_ITS | Clinical Summary ---
Author Organization [facility] Address [address] [place] [address] Care Team Providers Care Zinc Furnace Charger Name Role Phone Giancarlo Candelario Primary Care Provider [phone] Allergies No known active allergies Medications metFORMIN [...] Concentration - - Weight 136.1 kg (300 lb) 11/09/2024 12:03 AM CDT Height 185.4 cm (6' 1) 11/09/2024 12:03 AM CDT Body Mass Index 39.58 11/09/2024 12:03 AM CDT Plan of Treatment Health Maintenance Due Date Last Done Comments Colorectal Cancer Screening Colonoscopy (10 Years) 1960 Annual Physical 12/22/1963 Pneumococcal Vaccine: 50+ Years (1 of 1 - PCV) 2010 Zoster Vaccines (1 of 2) 2010 PHQ-2 (Physician Armstrong) 07/08/2024 COVID-19 Vaccine (1 - 2024-2 6 season) 2025 Influenza Adult (#1) 2025 DTaP, Tdap and Td Vaccines ( 2 - Td or Tdap) 05/30/2032 05/30/2022 RSV Immunization or 60+ Years (1 - 1-dose 75+ series) 12/22/2035 Colorectal Cancer Screening FIT/FOBT (1 Year) Discontinued 09/18/2020, 09/17/2020, 09/16/2020 Hepatitis C Completed 01/19/2023 Hepatitis A Vaccines Aged Out No long er eligible based on patient's age to complete this topic Meningococcal B Vaccine Aged Out No l [...] FECAL NEGATIVE NEGATIVE 09/20/2020 10:54 AM CDT [facility] STOOL SPECIMEN / Unknown 09/18/2020 10:38 AM CDT us Sandor Perez MD BODY FLUIDS AND STOOLS ORDER JASVIR Final Result [facility] [address] [place] [address], [place] [phone] from Last 3 Months or Most Recently Relevant to Health Maintenance Insurance [employer] Care Teams Zinc Furnace Charger Relationship Specialty Start Date End Date Giancarlo Candelario PA [address] [facility] [address] [place] [address] PCP - General PHYSICIAN MEDICAL CODER 11/19/23
--- OUTSIDE RECORDS SUMMARY | 2025-05-31 11:12 | XMS_ITS | Clinical Summary ---
Author Organization [facility] Address [address] [place] [address] Care Team Providers Care Home Visits Nurse Name Role Phone Rodney Nova MD Primary [...] Encounters Date Type Department Care Team Description 04/28/2025 Orders Only [facility] Radiology [address] [place] [address] Larissa Bearden business planner mass (Primary Dx); Status post cryoablation of mass of kidney 04/27/2025 Telephone [facility] Radiology [address] [place] [address] Larissa Bearden, RN from Last 3 Months Surgical History Surgery Date Site/Laterality Comments ABDOMINAL HERNIA REPAIR x3 CRYOABLATION RENAL RIGHT 01/27/2025 Right Medical History Medical History Date Comments Hypertension Type 2 diabetes mellitus Sleep apnea Family History Medical History Relation Name Comments Anesthesia problems Neg Hx Social History Tobacco Use Types Packs/Day Years Used Date Smoking Tobacco: Former Cigarettes 1 4 1 1981 Passive Smoke Exposure: Past Tobacco Cessation:Counseling [...] on file 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 73 m2 Comment: [...] Result Performing Organization Address [facility] de Phone Number [facility] [place] [address] * (ABNORMAL) POCT hemoglobin A1c (01/13/2025 1:27 PM CDT) Hgb A1C, POC 8.2(H) 4.0 - 5.6 % Est Average Gluc POC 189 mg/dL [facility] Comment: The ADA recommends reporting an estimated Average Glucose (eAG) with all Hemoglobin A1c results using the equation derived from a study of 507 normal and diabetic adults. Minority populations were underrepresented and children were not included. (Diabetes Care 31:0237-8641, 2008). The eAG is not equivalent to a fasting glucose. Blood 01/13/2025 1:27 PM CDT 01/13/2025 1:27 PM CDT Giancarlo CLEMENTE POINT OF CARE TEST ORDERA BLES Final Result Performing Organization Address [facility] de Phone Number [facility] [place] [address] from Last 3 Months or Most Recently Relevant to Health Maintenance Insurance [facility] AETNA SIGNATURE [place] [id number] [facility] Advance Directives For more information, please contact: [phone] Documents on File Type Date Recorded Patient Oil Analyst Expl anation ADVANCE DIRECTIVE 01/27/2025 7:48 AM Power of Cigar Wrapper-Medical * Full Code (Latest Code Status on File) Date Activated Date Inactivated Comments 01/27/2025 7:15 AM 01/28/2025 1:57 PM Care Teams Home Visits Nurse Relationship Specialty Start Date End Date Rodney Nova MD [address] [facility] [address] [place] [address] PCP - General Family Medicine 10/26/21
== END 2025-05-31 09:51 | disposition home or self-care (01) ==
PROVIDERS: PCP Family Medicine; Visit Provider Physician Assistant
DX: I82.890 Acute embolism and thrombosis of other specified veins (principal)
CPT/HCPCS: 93971